=== PATIENT | male | born 1955 | race Caucasian/White ===

== ENCOUNTER → 2018-01-04 02:56 | Outpatient (CLI) | payer OTHER, SELFPAY ==
[2018-01-04 08:11] LABS: Anion Gap 10.7 mmol/L (3-11); BUN 12 mg/dL (7-18); CO2 25.3 mmol/L (21.0-32.0); CREATININE 0.75 mg/dL (0.70-1.30); Calcium 8.8 mg/dL (8.5-10.1); Chloride 104 mmol/L (98-107); Cholesterol 190 mg/dL (50-200); Glucose 93 mg/dL (70-100); HDL Cholesterol 47 mg/dL (40-60); LDL CHOLESTEROL 121 mg/dL (<100); Potassium 4.4 mmol/L (3.5-5.1); Sodium 140 mmol/L (136-145); Triglyceride 165 mg/dL (30-150)
== END ==
PROVIDERS: PCP Family Medicine; Visit Provider Family Medicine
DX: Z00.00 Encounter for general adult medical examination without abnormal findings (principal); Z13.220 Encounter for screening for lipoid disorders; Z13.228 Encounter for screening for other metabolic disorders
CPT/HCPCS: 36415; 80048; 80061; 83721

== ENCOUNTER 2019-01-26 00:58 | Outpatient (CLI) | payer OTHER, SELFPAY ==
--- NOTE | 2019-01-26 08:17 | DI.RAD_ITS ---
SYMPTOM/DIAGNOSIS: RIGHT ELBOW PAIN M25.521 RIGHT ELBOW: 01/26 Three views were obtained. There is no evidence of an elbow joint effusion or hemarthrosis. There is a prominent osteophyte of the olecranon. No other significant bony abnormality seen. I would note that the cortex of the olecranon osteophyte is somewhat irregular and the possibility of an osteophyte fracture is not excluded. Please correlate clinically regarding any acute trauma to this area.
== END 2019-01-26 01:18 ==
PROVIDERS: PCP Family Medicine; Visit Provider Family Medicine
DX: M25.521 Pain in right elbow (principal); M25.721 Osteophyte, right elbow
CPT/HCPCS: 73080

== ENCOUNTER 2019-12-06 12:11 | Outpatient (CLI) | payer OTHER, SELFPAY ==
[2019-12-06 13:32] LABS: Abs Immature Grans 0.06 k/cumm (0.0-0.09); Absolute Basophil Count 0.03 k/cumm (0.0-0.2); Absolute Eosinophil Count 0.37 k/cumm (0.0-0.7); Absolute Lymphocyte Count 2.42 k/cumm (1.2-3.4); Absolute Monocyte Count 0.65 k/cumm (0.11-0.7); Absolute Neutrophil Count 6.57 k/cumm (1.2-6.7); Basophils % 0.3; Eosinophils % 3.7; HGB 14.8 g/dL (13.5-17.5); Immature Grans % 0.6 %; Mean Corp. HGB Concentration 33.6 g/dL (32.0-36.0); Mean Corpuscular Hemoglobin 33.5 pg (27.0-33.0); Mean Corpuscular Volume 99.5 fL (80-95); Mean Platelet Volume 9.8 fL (8.0-11.0); Monocytes % 6.4; Platelet Count 256 x1000/uL (130-400); RBC 4.42 m/cumm (4.50-6.00); RBC Distribution Width 12.3 % (11.8-14.1)
[2019-12-06 14:40] LABS: Anion Gap 9.9 mmol/L (3-11); BUN 17 mg/dL (7-18); CO2 26.1 mmol/L (21.0-32.0); Calcium 8.9 mg/dL (8.5-10.1); Chloride 106 mmol/L (98-107); Glucose 151 mg/dL (74-106); Potassium 3.6 mmol/L (3.5-5.1); Sodium 142 mmol/L (136-145)
== END 2019-12-06 12:31 ==
PROVIDERS: Nurse Practitioner Family; PCP Family Medicine; Visit Provider Family Medicine
DX: Z01.818 Encounter for other preprocedural examination (principal)
CPT/HCPCS: 36415; 80048; 85025

== ENCOUNTER 2020-02-27 08:37 | Outpatient (CLI) | payer OTHER, SELFPAY ==
[2020-02-29 17:44] LABS: Patient Race White; SARS-CoV-2 RNA Undetected (Undetected); SARS-CoV-2 Specimen Source Nasopharynx
== END 2020-02-27 08:57 ==
PROVIDERS: PCP Nurse Practitioner; Visit Provider Nurse Practitioner
DX: R50.9 Fever, unspecified (principal)
CPT/HCPCS: U0003

== ENCOUNTER 2020-03-29 01:02 | Outpatient (CLI) | payer OTHER, SELFPAY ==
[2020-04-02 14:00] LABS: Patient Race White; SARS-CoV-2 RNA Undetected (Undetected); SARS-CoV-2 Specimen Source Nasal
== END 2020-03-29 01:22 ==
PROVIDERS: PCP Nurse Practitioner; Visit Provider Nurse Practitioner
DX: Z11.59 Encounter for screening for other viral diseases (principal)
CPT/HCPCS: U0003

== ENCOUNTER 2020-09-06 01:37 | Outpatient (CLI) | payer OTHER, SELFPAY ==
[2020-09-06 10:12] LABS: Source Nasal/Nares
[2020-09-06 13:30] LABS: COVID-19 PCR Negative (Negative)
== END 2020-09-06 01:38 | disposition home or self-care (01) ==
LOC: LBO 01:37
PROVIDERS: PCP Nurse Practitioner; Visit Provider Surgery
DX: Z20.822 Contact with and (suspected) exposure to COVID-19 (principal); Z01.818 Encounter for other preprocedural examination
CPT/HCPCS: 87635

== ENCOUNTER 2020-09-09 10:12 | Day surgery (SDC) | payer OTHER, SELFPAY ==
--- NOTE | 2020-09-09 06:52 | W.COLOREPORT ---
Date of service: 09/09/20 Time of Service: 10:53 Colonoscopy Report Date of procedure: 09/09/20 Pre-op diagnosis general: Hx of colon polyps Post-op diagnosis procedure note: same (and mild diverticulosis) Procedure: Colonoscopy with polypectomy Surgeon: Kaylin Nguyễn Anesthesia Type: General:No Airway (ASA 2/ Abhi Gatica CRNA) Estimated blood loss (mL): 3 Pathology: other (ceecal polyp, ascending polyp and descending polyp) Complications: None Disposition: same day Indications: The patient is here for Colonoscopy pre-op. His last screening was in 2017 and was remarkable for tubular adenoma and tubulovillious polyps. He has no family history of colon cancer. He has not had any bowel habit changes. -Discussed colonoscopy bowel prep as well as the procedure. Discussed possible complications of the procedure to include bleeding, pain, perforation, missed small lesion/polyp, sore throat, aspiration and adverse reaction to the medications. Questions were answered to patient?s satisfaction. No guarantees were implied or given. Prep: Miralax/Dulcolax Procedure Start Time: :53 Procedure End Time: 11:20 Retraction Time: 20 minutes Findings: 3 small polyps mild diverticulosis Procedure Description: After informed consent was obtained the patient was taken to the procedure room and placed in a left decubitous position. Monitors were applied and a time out was done. The patients name, date of , procedure, allergies to medications and metal in their body was reviewed. The patient was then sedated. Once sedated and comfortable a rectal exam was done. External exam was normal. Internal exam revealed a normal sphincter tone and no palpable masses. The prostate felt smooth. The scope was then introduced and retro-flexed. No internal hemorrhoids, polyps or masses were identified on retro-flexion. The scope was then advanced to the cecum without difficulty. The ileocecal vlave and appendiceal orifice were identified. The prep was adequate. The scope was then slowly retracted over 20 minutes back into the rectum. Polyps were removed with cold forceps in the cecum, ascending and descending colon. There was mild diverticulosis notedon the right side. The scope was removed and the patient was woken up and taken back to Same day surgery in stable condition. The patient tolerated the procedure well and there were no immediate complications. Follow up: The patient should follow up in 5 years unless they develop changes in bowel habits or other new gastrointestinal complaints.
--- NOTE | 2020-09-09 06:53 | W.PM.DSUDISC ---
Discharge Plan Disposition Patient Disposition: HOME Condition: Good Discharge Details Reason For Visit: Colonoscopy Attending Provider: Kaylin Nguyễn Primary Care Provider: Anali Caicedo Home Meds and New Rx's Prescriptions: Continued cinnamon bark 500 MG capsule 500 mg PO DAILY RF: 0 omega-3 fatty acids-fish oil 1 EACH capsule 1 ea PO BID RF: 0 Vitamin D3 (calcium cit-phos) 1 EACH tablet 1 ea PO DAILY RF: 0 aspirin [St Master Aspirin] 81 MG tablet,chewable 81 mg PO DAILY RF: 0 ibuprofen 200 MG tablet 2 tab PO BID prn RF: 0 Discontinued bisacodyl [Dulcolax (bisacodyl)] 5 mg tablet,delayed release (DR/EC) 5 mg PO ONCE Qty: 4 RF: 0 polyethylene glycol 3350 17 gram/dose powder 238 g PO ONCE Qty: 238 RF: 0 Discharge Instructions Instructions: Colorectal Polyps (DC), Diverticulosis (DC) Additional Instructions: Findings: 3 small polyps Diverticulosis Follow up: 5 years Please call if you develop: fevers >101.5 Nausea or Vomiting Abdominal pain that is not transient DAY SURGERY UNIT POST ENDOSCOPY INSTRUCTIONS 1. Because there will be medication in your system for the next 24 hours, you may feel a little sleepy. Your coordination will be affected. Therefore: a. Do not drive or operate dangerous equipment for 24 hours. b. Do not drink alcohol beverages for 24 hours (not even beer). c. Plan to go home and rest for the day. 2. Generally there are no restrictions on your activity after a day or so has gone by, but you may feel a bit fatigued for a few days. 3 After you arrive home you may have a light meal and return to a normal diet as you can tolerate it without feeling sick to your stomach. 4. After surgery, you may feel pain or discomfort. This should be only transient, but if it persists please contact your doctor. 5. If there are any questions regarding the findings of your procedure, please feel free to contact your doctor. 6. If you are unable to contact your doctor with a problem, contact the hospital at [phone]. 7. Continue all your regular medications unless directed otherwise. I understand the above instructions and have no questions. Signature of Patient or Responsible Adult Escort Date/Time Name of Responsible Adult Escort Signature of Nurse Date/Time Activity:: Activity as Tolerated Diet:: High Fiber diet Discharge Orders Discharge Orders: Discharge Order (Routine); Ordered 09/09/20 Ordered By: Kaylin Nguyễn
--- NOTE | 2020-09-09 09:23 | W.ANESPRE ---
Anesthesia Assessment and Plan Anesthesia History Personal History: No History of Anesthesia Complications Family History: No Family History of Anesthesia Complications Exercise Tolerance Exercise Tolerance: Metabolic Equivalents>4 Cardiac & Pulmonary Exam Cardiac Exam: Normal S1/S2 Heart Sounds Pulmonary Exam: Clear Bilateral Breath Sounds Airway Exam Known Difficult Airway: Yes Mallampati Class: 2 Mouth Opening: Normal (> 3cm) Thyromental Distance: Greater than 3 cm Neck Range of Motion: Full ROM Neck Circumference: Normal Teeth Condition: Normal Dentition ASA Classification ASA Score: ASA 2 ASA Emergency: No NPO Status NPO Status: NPO Clears >2 hours, Solids >8 hours Anesthesia Plan Anesthesia Technique: General Anesthesia Airway Planned: Natural Airway Monitors Used: Standard Monitors Additional Preop Comments:: previous colo 2017 with prop/lido without issue. Had tubular adenoma and tubovillious polyps. Imaging and Studies Imaging and Studies EKG Summary 12/03: sinus miguel a. General Info Date of Service This is a Shared Provider Document. All providers who document on this will be required to sign document once completed. Please Communicate with Team Date Performed: 09/09/20 Height: 6 ft 2 in Weight: 98.997 kg Body Mass Index (BMI): 28.0 Surgical Procedure: Operation Date: 09/09/20 11:35 Proposed Procedures Side Surgeon p Colonoscopy Kaylin Nguyễn MD Vital Signs and Lab Results Vital Signs Most Recent Vital Signs in EMR: vital signs reviewed. Point of Care Results Nursing Point of Care Results: No Data to Display Lab Results Blood Type / Crossmatch: No Data to Display Complete Blood Count: White Blood Count 10.10 k/cumm (4.4-10.8) 12/06/19 13:25 12/06/19 Red Blood Count 4.42 m/cumm (4.50-6.00) L 12/06/19 13:25 12/06/19 Hemoglobin 14.8 g/dL (13.5-17.5) 12/06/19 13:12/06/19 Hematocrit 44.0 % (40.0-50.0) 12/06/19 13:25 12/06/19 Platelet Count 256 x1000/uL (130-400) 12/06/19 13:25 12/06/19 Complete Metabolic Panel: Sodium Level 142 mmol/L (136-145) 12/06/19 13:25 12/06/19 Potassium Level 3.6 mmol/L (3.5-5.1) 12/06/19 13:25 12/06/19 Chloride Level 106 mmol/L (98-107) 12/06/19 13:25 12/06/19 Carbon Dioxide Level 26.1 mmol/L (21.0-32.0) 12/06/19 13:25 12/06/19 Blood Urea Nitrogen 17 mg/dL (7-18) 12/06/19 13:25 12/06/19 Creatinine 0.80 mg/dL (0.70-1.30) 12/06/19 13:25 12/06/19 Calcium Level 8.9 mg/dL (8.5-10.1) 12/06/19 13:25 12/06/19 Albumin 3.8 g/dL (3.4-5.0) 07/24/11 07:51 07/24/11 Glucose Level 151 mg/dL (74-106) H 12/06/19 13:25 12/06/19 Liver Function Panel: Alanine Aminotransferase (ALT/SGPT) 30 U/L (30-65) 07/24/11 07:51 07/24/11 Aspartate Amino Transf (AST/SGOT) 21 U/L (15-37) 07/24/11 07:51 07/24/11 Coagulation Panel: No Data to Display Cardiac Panel: No Data to Display Arterial Blood Gas: No Data to Display Venous Blood Gas: No Data to Display Pancreas Panel: No Data to Display Thyroid Panel: No Data to Display Infectious Disease: Coronavirus (COVID-19)(PCR) Negative (Negative) 09/06/20 08:48 09/06/20 Coronavirus 2019 Source Nasal/nares 09/06/20 08:48 09/06/20 Blood Cultures: Blood Culture Toxicology Panel: Urine Amphetamines Screen Negative (Negative) 04/06/15 23:35 04/06/15 Urine Benzodiazepines Screen Negative (Negative) 04/06/15 23:35 04/06/15 Urine Barbiturates Screen Negative (Negative) 04/06/15 23:35 04/06/15 Urine Cocaine Screen Negative (Negative) 04/06/15 23:35 04/06/15 Urine Methadone Screen Negative (Negative) 04/06/15 23:35 04/06/15 Urine Opiates Screen Negative (Negative) 04/06/15 23:35 04/06/15 Ur Tricyclic Antidepressants Screen Negative (Negative) 04/06/15 23:35 04/06/15 Ur Tetrahydrocannabinol (THC) Scrn Negative (Negative) 04/06/15 23:35 04/06/15 Panel: No Data to Display [facility] Medical History Former smoker Hyperlipidemia Trigeminal neuralgia of right side of face Surgical History ANKLE SURGERY LEFT Colonoscopy - MAC (02/08/17) (2007, NORMAL) H/O right cataract extraction (~05/2020) [facility] Social History (Updated 08/29/20 @ 10:16 by [place] Gay) Smoking/Tobacco Use Status: Former Tobacco Use Quit Date: 11/15/19 Smokeless tobacco user: dissolvable tobacco Quit status: not considering quitting Second Hand Exposure: No Smoking risk assessment performed?: Yes Alcohol Intake: current Alcohol Intake frequency: 0-2 drinks per day Alcohol type: beer and hard liquor Drug use: Never Substance use type: does not use Caregiver/Support person: No Household members: spouse Housing: house Communication Needs: None Pets and animals: Yes (Goats, Geese, Johnston) Pets and animals: cat(s) and dog(s) Sexually active: Yes Do you think of yourself as: straight/heterosexual Current gender identity: male What is your relationship status?: How often do you talk on the phone with friends or family?: three or more times per week How often do you get together with friends or relatives?: three or more times per week How often do you attend zoroastrianism or rastafari services?: 1-3 times per year Do you belong to any clubs or organized social groups?: yes Panel score (0-1 are the most socially isolated patients): 3 What type of physical activity do you participate in: walking and other Details: hockey, hiking Duration: > 90 minutes/day Frequency: daily Aura/Confucianist: Restorationism Special aura needs: No Seatbelt use: always Helmet use: Yes Helmet use: always Drive intox or ride w/intox shuttle truck driver: No Do you feel safe at home: Yes Do you feel safe in your relationship?: Yes Meds Allergies and Home Medications Allergies Allergy/AdvReac Type Severity Reaction Status Date / Time cashew nut AdvReac Intermediate Skin Rash Unverified 09/06/20 08:54 Current Visit Medication Generic Name Dose Route Start Last Admin Trade Name Segun PRN Reason Stop Dose Admin Hyoscyamine Sulfate 0.125 mg 09/09/20 06:54 Hyoscyamine 0.125 Mg Sl/Oral/Chew SL DIRECTED PRN Ringer's Solution 1,000 mls @ 80 mls/hr 09/09/20 06:00 09/09/20 10:42 IV 09/09/20 23:59 80 mls/hr INFUSION AMAURI Administration IV Miscellaneous Supplies 1 each 09/09/20 06:00 Iv Access IV 09/09/20 23:59 DIRECTED AMAURI Ondansetron HCl 4 mg 09/09/20 06:54 Ondansetron 4 Mg/2 Ml Vial IVP Q4H PRN PRN Nausea / Vomiting Sodium Chloride 0 ml 09/09/20 06:00 Normal Saline Flush 10 Ml Syr IV 09/09/20 23:59 PRN PRN Sodium Chloride 0 ml 09/09/20 06:00 Normal Saline 10 Ml Vial IJ 09/09/20 23:59 DIRECTED PRN Sterile Water 0 ml 09/09/20 06:00 Water,Injection,Sterile 10 Ml Vial IJ 09/09/20 23:59 DIRECTED PRN Home Medication Medication Instructions Recorded cinnamon bark 500 mg PO DAILY 05/24/13 omega-3 fatty acids-fish oil 1 ea PO BID 05/24/13 Vitamin D3 (calcium cit-phos) 1 ea PO DAILY tab 05/25/13 aspirin [St Master Aspirin] 81 mg PO DAILY tab.chew 05/29/14 ibuprofen 2 tab PO BID prn 06/18/15
[2020-09-09 10:18] VITALS: BP 143/83; PULSE 75; RESP 16; TEMP 36.4; O2SAT 98
[2020-09-09] MEDS: Lactated Ringers 1,000 ML 80 ML IV (10:42)
[2020-09-09 10:43] VITALS: BMI 28.0
--- NOTE | 2020-09-09 11:00 | BOWEL_PTH ---
PATIENT: Andrea Alva LOC: ART U#:[id number] AGE/SX: 65/M ROOM: RE09/09/[address]: Kaylin Nguyễn MD : 1955 BED: DIS: 09/09/2020 SPEC #: [id number] RECD: 09/09/20 12:45 STATUS: KATHIA REJoesph #: [id number] DWAIN: 09/09/20 11:[address]: Kaylin Nguyễn DEPT: Surgical Specimen RECD BY: Mary Ann Stokes ENTERED: 09/09/20 12:46 SP TYPE: Bowel OTHR DR: Anali Caicedo, PhD NURSING ADMINISTRATOR Tissues: 1 - BIOPSY BOWEL 2 - BIOPSY BOWEL 3 - BIOPSY BOWEL Procedures: GROSS AND MICRO LEVEL 4 Comments: [id number]
[2020-09-09 11:31] VITALS: BP 110/71; PULSE 61; RESP 16; TEMP 36.3; O2SAT 96
--- NOTE | 2020-09-09 11:31 | W.ANESPOSTOP ---
Postoperative Evaluation Date, Time and Location Date Performed: 09/09/20 Time Performed: 11:32 Patient Location: Day Surgery Unit Vital Signs Most Recent Imported Vital Signs: Most Recent Vital Signs Temp Pulse Resp BP Pulse Ox 36.4 C L 75 16 143/83 H 98 09/09/20 10:18 09/09/20 10:18 09/09/20 10:18 09/09/20 10:18 09/09/20 10:18 Most Recent Manually Entered Vital Signs: Adult Blood Pressure: 110/71 Heart Rate: 61 Respirations: 15 Oxygen Saturation (%): 97 Temperature (C): 36.2 C Pain Score (0-10 Scale): 0 Assessment Mental Status: Arousable with meaningful communication Airway and Respiratory Function: Patent airway with normal (patient baseline) respiratory exam Cardiovascular Function: Hemodynamically Stable Hydration Status: Adequately Hydrated Nausea & Vomiting: No Nausea or Vomiting Pain: Pt. Denies Any Pain Peripheral Nerve Block: Patient did not receive a nerve block
[2020-09-09 11:32] VITALS: BP 110/71; PULSE 61; RESP 15; TEMPC 36.2; O2SAT 97
[2020-09-09 11:54] VITALS: BP 132/87; PULSE 57; RESP 16; TEMP 36.2; O2SAT 98
== END 2020-09-09 12:10 | disposition home or self-care (01) ==
LOC: SUR 10:12
PROVIDERS: PCP Nurse Practitioner; Visit Provider Surgery
PROC: 0DJD8ZZ Inspection of Lower Intestinal Tract, Via Natural or Artificial Opening Endoscopic (ICD-10-PCS; CPT 45378; principal; 2020-09-09 11:30)
DX: Z12.11 Encounter for screening for malignant neoplasm of colon (principal); Z86.010 Personal history of colon polyps; K57.30 Diverticulosis of large intestine without perforation or abscess without bleeding; D12.0 Benign neoplasm of cecum; D12.4 Benign neoplasm of descending colon
CPT/HCPCS: 45380; 88305; J2001

== ENCOUNTER 2020-11-27 03:21 | Outpatient (CLI) | payer OTHER, SELFPAY ==
[2020-11-27 12:48] LABS: Hemoglobin A1C 5.6 % (<5.7)
[2020-11-27 20:13] LABS: Calculated LDL 127 mg/dL (<100); Cholesterol 204 mg/dL (<200); HDL Cholesterol 48 mg/dL (40-60); Triglyceride 149 mg/dL (<150)
== END 2020-11-27 03:22 | disposition home or self-care (01) ==
LOC: LOS 03:21
PROVIDERS: PCP Nurse Practitioner; Visit Provider Nurse Practitioner
DX: Z13.1 Encounter for screening for diabetes mellitus (principal); Z13.6 Encounter for screening for cardiovascular disorders
CPT/HCPCS: 36415; 80061; 83036

== ENCOUNTER 2022-01-21 14:34 | Outpatient (REF) | payer OTHER, SELFPAY | END 2022-01-21 14:35 | disposition home or self-care (01) | LOC: LBN 14:34 | PROVIDERS: PCP Nurse Practitioner; Visit Provider Nurse Practitioner Family | DX: R31.9 Hematuria, unspecified (principal) | CPT/HCPCS: 87077; 87086 ==

== ENCOUNTER 2022-01-23 01:16 | Outpatient (CLI) | payer OTHER, SELFPAY ==
--- OUTSIDE RECORDS SUMMARY | 2022-01-23 01:19 | XMS_ITS | Encounter Summary ---
:1955 [place] [address] Care Team Providers Name Role Phone Elkin Livingston MD Primary Care Provider Reason for Visit Reason Comments Post Op Encounter Details Date Type Department Care Team Description 05/23/2020 Office Visit Ophthalmology at [facility] Ezequiel Esparza, S/P cataract [facility] [place] [address] [place] [address] intraocular lens, OPHTHALMOLOGY right DEPT. [place], [place] [address] Social History Tobacco Use Types Packs/Day Years Used Date Former Smoker Cigarettes 0.25 Quit: 12/04/19 20 Smokeless Tobacco: Never Used Alcohol Use Standard Drinks/Week Comments Yes 21 (1 standard drink = 0.6 oz pure alcoh ol) Sex Assigned at Date Recorded Male 09/14/2020 5:13 PM EDT documented as of this encounter Progress Notes Ezequiel Esparza MD - 05/23/2020 11:15 AM EST Assessment/Plan: 1. 1 week s/p CE/IOL OD Doing well with normal postop appearance Stop Vigamox drops Continue prednisolone and ketorolac drops 3x/day until gone 2. S/p VTX/SB for mac-off RD repair OD Llimits acuity Follow up: 1 month documented in this encounter Plan of Treatment Not on filedocumented as of this encounter Visit Diagnoses Diagnosis S/P cataract extraction and insertion of intraocular lens, right documented in this encounter Care Teams Television Equipment Operator Relationship Specialty Start Date End Date Elkin Livingston MD PCP - General Family Medicine 12/05/[address] [facility] [address] [place] [address] documented as of this encounter
--- OUTSIDE RECORDS SUMMARY | 2022-01-23 01:19 | XMS_ITS | Clinical Summary ---
:1955 Author Organization [facility] [place] [address] Care Team Providers Name Role Phone Elkin Livingston MD Primary Care Provider Allergies Active Allergy Reactions Severity Noted Date Comments Cashew Nut 12/04/2019 Medications Medication Sig Dispensed Refills Start Date End Date Status niacin 50 mg Tablet Take 50 mg by 0 Active mouth daily (with breakfast). glucosamine sulfate 500 Take by mouth. 0 Active mg Tablet cinnamon bark (CINNAMON Take by mouth. 0 Active ORAL) Multivits/Iron Take by mouth. 0 Active Fum/FA/D3/Lycop (MULTI FOR HIM ORAL) aspirin EC 81 mg Take 81 mg by 0 Active Tablet, Delayed Release mouth as needed. (E.C.) Soft Lens Rinse-Store 1 drop by 0 Active Solution (Saline Misc.(Non-Drug; Sensitive Eyes) Drops Combo Route) route as needed. fish oil-omega-3 fatty Take 2 g by mouth 0 Active acids 1,000 mg Capsule daily. Active Problems Problem Noted Date Combined forms of age-related cataract of right eye Overview: Added automatically from request for romero ryan [id number] Encounters Date Type Specialty Care Team Description 01/02/2022 Office Visit Ophthalmology Nick Paiz MD Macula- off rhegmatogenous retinal detachment, right (SB, PPV, C3F8 12/07/19); Epiretinal memb patsy (ERM) of right eye from Last 3 Months Immunizations Name Administration Dates Next Due Pneumococcal Polyvalent 23 03/15/2003 Td, adult 05/17/1996 Family History Medical History Relation Comments Cataracts Neg Hx Glaucoma Neg Hx Macular Degeneration Neg Hx Retinal Detachment Neg Hx Social History Tobacco Use Types Packs/Day Years Used Date Former Smoker Cigarettes 0.25 Quit: 12/04/19 20 Smokeless Tobacco: Never Used Alcohol Use Standard Drinks/Week Comments Yes 21 (1 standard drink = 0.6 oz pure alcoh ol) Sex Assigned at Date Recorded Male 09/14/2020 5:13 PM EDT Last Filed Vital Signs Vital Sign Reading Time Taken Comments Blood Pressure 124/90 05/14/2020 9:42 AM EST Pulse 67 05/14/2020 9:42 AM EST Temperature 36.4 ??C (97.5 ??F) 05/14/2020 9:42 AM EST Respiratory Rate 16 05/14/2020 9:42 AM EST Oxygen Saturation 97% 05/14/2020 9:42 AM EST Inhaled Oxygen Concentration - - Weight 96.2 kg (212 lb) 05/14/2020 7:52 AM EST Height 188 cm (6' 2) 05/14/2020 7:52 AM EST Body Mass Index 27.22 05/14/2020 7:52 AM EST Plan of Treatment Health Maintenance Due Date Last Done Comments Covid-19 Vaccine (#1) 01/24/1961 HIV screen 01/24/1974 Hepatitis C Screening 01/24/1974 Lipid Screening 01/24/1974 Tdap adult 01/24/1975 Diabetes Screening (HgbA1C or Glucose) 1996 Colonoscopy 01/24/2001 Zoster vaccine (1 of 2) 01/24/2006 Tetanus vaccine 05/17/2006 05/17/1996 Advance Directive 01/24/2011 AAA Screen 01/24/2021 Pneumoccocal Vaccine: 65+ (1 - PCV) 01/24/2021 03/15/2003 Influenza (Flu) vaccine (1 of 1 - Influenza standard 01/15/2022 series) Medical Devices Implanted Type Area Sausage Machine Operator Device Shelf Model / Identifier Expiration Serial / Date Lot Strip,Jeri,5mm ([id number]) - [id number] IMPLANTS Right: MALAGASY OPTH VLAD 05/16/2024 [id number] / Implanted: Qty: 1 on 12/07/2019 by Nick Paiz MD at [facility] Eye [facility] - MALAGASY OPTH / [id number] Lens Iol [id number] +17.5d 6.0x13.0 Monofoca l Post Biconvex ([id number]) (Autoreq) - [id number] IMPLANTS Right: NOVARTIS - 10/24/2024 [id number] 17.5 / Implanted: Qty: 1 on 05/14/2020 by Ezequiel Esparza MD at [facility] Eye NOVARTIS [id number] / Procedures Procedure Name Priority Date/Time Associated Diagnosis Comme nts OCT RETINA - OU - Routine 01/02/2022 4:10 PM Macula-off Resu lts for this BOTH EYES EDT rhegmatogenous retinal proce dure are in detachment, right (SB, the r esults PPV, C3F8 0) section. Epiretinal membrane (ERM) of right eye from Last 3 Months Results OCT Retina - OU - Both Eyes (01/02/2022 4:10 PM EDT) Anatomical Region Laterality Modality Other Specimen (Source) Anatomical Location Collection Method / Collectio n Time Received Time / Laterality Volume Narrative 01/02/2022 4:10 PM EDT Right Eye Quality was good. Scan locations include d subfoveal. Progression has been stable. Findings include macular pucker, abnormal foveal contour. Left Eye Quality was good. Scan locations include d subfoveal. Progression has been stable. Findings include normal observat ions, normal foveal contour. Nick Paiz MD OPHTHALMOLOGY SERVICES ORDER THANH from Last 3 Months Insurance Payer Benefit Plan / Subscriber ID Effective Dates Phone Addre ss Type Group MVP P [place] [id number] 2019-Present [phone] [phone] [place] [address] Advance Directives Documents on File Type Date Recorded Patient Skirt Maker Explanati on Personal Skirt Maker 01/03/2020 2:42 PM Paxton Escobedo Latest Code Status on File Code Status Date Activated Date Inactivated Comments Full Code 12/07/2019 12:20 PM 12/07/2019 6:50 PM Does patient have capacity to make decision: Yes Care Teams Phlebotomy Program Coordinator Relationship Specialty Start Date End Date Elkin Livingston MD PCP - General Family Medicine 12/05/[address] [place] [address] [place] [address]
--- OUTSIDE RECORDS SUMMARY | 2022-01-23 01:19 | XMS_ITS | Encounter Summary ---
:1955 [place] [address] Care Team Providers Name Role Phone Elkin Livingston MD Primary Care Provider Reason for Visit Reason Comments Post Op Encounter Details Date Type Department Care Team Description 06/24/2020 Office Visit Ophthalmology at [facility] Ezequiel Esparza, S/P cataract [facility] MD [place] [address] [place] [address] intraocular lens, OPHTHALMOLOGY right DEPT. [place], [place] [address] Social History Tobacco Use Types Packs/Day Years Used Date Former Smoker Cigarettes 0.25 Quit: 12/04/19 20 Smokeless Tobacco: Never Used Alcohol Use Standard Drinks/Week Comments Yes 21 (1 standard drink = 0.6 oz pure alcoh ol) Sex Assigned at Date Recorded Male 09/14/2020 5:13 PM EDT documented as of this encounter Progress Notes Ezequiel Esparza MD - 06/24/2020 10:45 AM EST Assessment/Plan: 1. 1 month s/p CE/IOL OD Doing well with normal post-op appearance, off drops 2.??S/p VTX/SB for mac-off RD repair OD ?Llimits acuity Glasses Rx written. Follow up: With Dr. Paiz in August With Dr. Negrete in 4 months for continuing optometric care. Patient to call for appointment documented in this encounter Plan of Treatment Not on filedocumented as of this encounter Visit Diagnoses Diagnosis S/P cataract extraction and insertion of intraocular lens, right documented in this encounter Care Teams Patient Account Representative Relationship Specialty Start Date End Date Elkin Livingston MD PCP - General Family Medicine 12/05/[address] [place] [address] [place] [address] documented as of this encounter
--- OUTSIDE RECORDS SUMMARY | 2022-01-23 01:19 | XMS_ITS | Encounter Summary ---
:1955 Author Organization [facility] [place] [address] Care Team Providers Name Role Phone Elkin Livingston MD Primary Care Provider Reason for Visit Auth/Cert Specialty Diagnoses / Procedures Referred By Contact Refer red To Contact Diagnoses Cataract Procedures PRO EXTRACAPSULAR CATARACT RMVL INSERTION IO LENS PROSTH W/O ECP CATARACT EXTRACTION, EXTRACAPSULAR, W/ LENS INSERTION (WRVU 8.52) Referral ID Status Reason Start Date Expiration Date Visits Requ ested Visits Authorized [id number] 1 1 Encounter Details Date Type Department Care Team Description 05/14/2020 Hospital Encounter Outpatient Surgery Ezequiel Esparza ombined forms of age-related cataract of right eye; [place] Karmen Andersen MD Combined forms of age-related cataract o f right eye [facility] [place] [id number] [phone] Social History Tobacco Use Types Packs/Day Years Used Date Former Smoker Cigarettes 0.25 Quit: 12/04/19 20 Smokeless Tobacco: Never Used Alcohol Use Standard Drinks/Week Comments Yes 21 (1 standard drink = 0.6 oz pure alcoh ol) Sex Assigned at Date Recorded Male 09/14/2020 5:13 PM EDT documented as of this encounter Last Filed Vital Signs Vital Sign Reading [...] Mass Index 27.22 05/14/2020 7:52 AM EST documented in this encounter Discharge Instructions Discharge InstructionsMarcela Ramachandran RN - 05/14/2020 7:59 AM EST Home Care Instructions after Cataract Surgery Do not remove the eye patch or shield, unless instructed to do so. Take it easy today. Avoid strenuous activities. Bring your eye drops and the Eye Care Kit with you to each visit after your surgery. Resume all your regular medicines. It is normal to have a scratchy sensation or mild pain in your eye. If you develop vomiting or severe pain not relieved with medication please call. Your appointment with Dr. Esparza is in the Eye Clinic tomorrow. Please check in at 4-B and wait for your name to be called. You may have received medication before and/or during your procedure, which affect your judgement and reaction time. Therefore, for the next 24 hours: You may be unsteady on your feet: be careful on stairs. Do not smoke if you are alone. Do not drink alcoholic beverages. Do not drive or operate any type of machinery. Do not make important legal decisions. If you are having any problems or additional concerns or questions please call: [phone] 8am to 5pm. After 5pm, please call [phone] and ask for ophthalmology MD network control supervisor. documented in this encounter Medications at Time of Discharge Medication Sig Dispensed Refills Start Date End Date Soft Lens Rinse-Store 1 drop by 0 Solution (Saline Sensitive Misc.(Non-Drug; Eyes) Drops Combo Route) route as needed. fish oil-omega-3 fatty Take 2 g by mouth 0 acids 1,000 mg Capsule daily. niacin 50 mg Tablet Take 50 mg by mouth 0 daily (with breakfast). glucosamine sulfate 500 mg Take by mouth. 0 Tablet cinnamon bark (CINNAMON Take by mouth. 0 ORAL) Multivits/Iron Take by mouth. 0 Fum/FA/D3/Lycop (MULTI FOR HIM ORAL) aspirin EC 81 mg Tablet, Take 81 mg by mouth 0 Delayed Release (E.C.) as needed. documented as of this encounter Progress Notes Yoli Clayton RN - 05/14/2020 9:53 AM EST Patient ambulated to car for discharge accompanied by [facility] staff member. Yoli Lipscomb RN - 05/14/2020 9:49 AM EST Discharge instructions and medications reviewed with patient and with his . All questions answered and written copy given to his . Yoli Lipscomb RN - 05/14/2020 9:44 AM EST Date/Procedure: Meds Given Comments 05/14 Versed 2mg Tolerated well Fentanyl 50mcg Tolerated well Yoli Lipscomb RN - 05/14/2020 9:04 AM EST Pt instructed to squeeze RN's hand if having pain, need to cough, etc. Pt instructed not to talk during procedure. Pain assessment unable to verbalize (non-verbal) but will indicate pain with hand squeeze, ask surgeon to pause and verbally assess pt. Marcela Hill RN - 05/14/2020 8:07 AM EST Discharge instructions and medications reviewed with patient and , Doris. All questions answered and written copy sent home with patient. Pt instructed to squeeze RN's hand if having pain, need to cough, etc. Pt instructed not to talk during procedure. Pain assessment unable to verbalize (non-verbal) but will indicate pain with hand squeeze, ask surgeon to pause and verbally assess pt. Harjinder Conte RN - 05/13/2020 2:35 PM EST During this call the patient was questioned regarding travel outside of [place] states, fever, cough, SOB or other illness in the last 14 days. Patient also questioned regarding any exposure to a COVID positive person, a person awaiting results from testing or a person in quarantine.Patient also denies attending a gathering of 50 people indoors or 100 people outdoors where a mask was unable to beworn.Patient denies any positive responses to the above questions for themselves or their escort forthe day of procedure. Patient informed of procedure to be followed upon arrival to the [facility]. That being, COVID questions will be asked again, temperature will be taken, patient and caregiver/school bus driver/mechanic will be given a mask to wear the entire time they are in the [facility] building. Sabina Paris RN - 05/06/2020 3:02 PM EST During this call the patient was questioned regarding travel outside of [place] states, fever, cough, SOB or other illness in the last 14 days. Patient also questioned regarding any exposure to a COVID positive person, a person awaiting results from testing or a person in quarantine.Patient also denies attending a gathering of 50 people indoors or 100 people outdoors where a mask was unable to beworn.Patient denies any positive responses to the above questions for themselves or their escort forthe day of procedure. Patient informed of procedure to be followed upon arrival to the [facility]. That being, COVID questions will be asked again, temperature will be taken, patient and caregiver/school bus driver/mechanic will be given a mask to wear the entire time they are in the [facility] building. documented in this encounter H&P Notes Ezequiel Esparza MD - 05/14/2020 8:21 AM EST Andrea Alva was examined in the preoperative area. He reports no new symptoms or other change in his health since his preoperative history and physical exam was performed less than 30 days ago. His exam reveals no significant changes. He is breathing comfortably, without cyanosis or use of accessory muscles. Vital signs are within acceptable parameters. The eyes are quiet without discharge or other signs of active infection. Heart: RRR Lungs: CTA Mal: 1 ASA: 2 The sedation plan was reviewed with Andrea Alva and he expressed understanding and agreement. Andrea Alva has cataract OD. Today's surgery is on the R side. Ezequiel Esparza MD - 05/14/2020 8:21 AM EST See H&P from [facility] documented in this encounter Miscellaneous Notes Op Note - Ezequiel Esparza MD - 05/14/2020 9:41 AM EST Pre-op diagnosis: Nuclear sclerotic cataract, right eye Post-op diagnosis: Same Surgeon: Ezequiel Esparza MD Name of procedure: Phacoemulsification of cataract with posterior chamber intraocular lens implant, right eye Anesthesia: Subtenons retrobulbar block, IV sedation Indications: Andrea Alva has a visually significant cataract compromising his vision and interfering with daily activities. Full documentation of the clinical indications for surgery is in the preoperative outpatient evaluation. Description of procedure: The right eye was marked preoperatively. A latex-free procedure was performed. The patient was brought into the operating suite, positioned in the supine position, and the patient's identity was verified by the surgeon and operative team. Monitors were placed by the mainspring torque tester. Topical anaesthetic was placed in the right eye. The patient's right eye was prepped with Betadine, including a drop of Betadine in the cul-de-sac. The eye was draped in the usual fashion for intraocular surgery, isolating the eyelashes from the surgical field. An open wire lid speculum was placed. Theoperating microscope was positioned. A buttonhole incision was made in conjunctiva and tenons capsule in the inferonasal quadrant. Bleeders cauterized. Subtenons retrobulbar anesthesia was administered through a cannula with 2.0cc of 2% lidocaine mixed with 0.75% bupivicaine. Adequate anesthesia was obtained. A superior conjunctival peritomy was made, followed by gentle hemostasis with eraser-tip bipolar cautery. A half-thickness scleral groove incision was made 1mm posterior to the limbus. A limbal stab incision was made at 2:00. The eye was entered at the 95 degree meridian with a 2.4mm keratome. Viscoatand then Provisc was instilled in the AC in an Arshinoff-shell technique. A continuous curvilinear capsulorhexis was made with a cystotome. The lens was loosened with hydrodissection. The nucleus was emulsified with the phacoemulsification handpiece in a [id number]-[id number] fashion. Residual cortical material was removed with the automated irrigation/aspiration unit. The posterior capsule was vacuum-polished. The capsular bag was inflated with viscoelastic. An Yuri Model SN60WF posterior chamber lens with a 6mm acrylic optic was inspected and found to be without defects, placed in the [place] III manager sas cartridge, and injected into the capsular bag without difficulty. The lens was secure and well- centered. Viscoelastic was thoroughly removed with the irrigation/aspiration handpiece. The anterior chamber was filled with BSS to normal intraocular pressure. The wounds were checked for leakage andthere was none. Conjunctiva was closed with 10-0 vicryl. One drop of Vigamox, Cosopt, and Maxitrol ointment were instilled, followed by a patch and shield over the operated eye. The patient was taken to [facility] in stable condition. Lens: Yuri SN60WF +17.5 diopter PCIOL EBL <1cc Specimen Removed: None (cataract emulsified, not saved as specimen) Drains: None Surgical Closure: Primary Complications: None Attestation: I performed this procedure without the involvement of a resident. 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 - Primary Other and combined forms of senile catar act documented in this encounter Admitting Diagnoses Diagnosis Combined forms of age-related cataract o f right eye Other and combined forms of senile catar act documented in this encounter Administered Medications Inactive Administered Medications - up to 3 most recent administrations Medication Order MAR Action Action Date Dose Rate Site ketorolac tromethamine (ACULAR) Given 05/14/2020 8:11 AM EST 1 d rop 0.5 % ophthalmic solution 1 drop 1 drop, Right Eye, ONCE, 1 dose, On Wed05/14/20 at 0815, 1 drop to the operative eye once, start on day of surgery, Day of Surgery (Day of Procedure), Routine lactated ringers infusion New Bag 05/14/2020 8:33 AM EST 1,000 mLs 100 mL/hr 1,000 mL, at 100 mL/hr, Intravenous, CONTINUOUS, Starting on Wed05/14/20 at 0815, Until Wed05/14/20 at 0955, Day of Surgery (Day of Procedure) moxifloxacin (VIGAMOX) 0.5 % ophthalmic Given 05/14/2020 8:25 AM EST 1 drop solution 1 drop 1 drop, Right Eye, EVERY 5 MIN, 3 doses, First dose on Wed05/14/20 at 0815, Last dose on Wed05/14/20 at 0825, 1 drop to the operative eye every 5 minutes times 3. Start on the day of surgery. , Day of Surgery (Day of Procedure), Routine Given 05/14/2020 8:21 AM EST 1 drop Given 05/14/2020 8:12 AM EST 1 drop PHENYLephrine (MYDFRIN) 2.5 % ophthalmic Given 05/14/2020 8:20 A M EST 1 drop solution 1 drop 1 drop, Right Eye, EVERY 5 MIN, 3 doses, First dose on Wed05/14/20 at 0815, Last dose on Wed05/14/20 at 0825, 1 drop to the operative eye every 5 minutes times 3. Start on the day of surgery. Do NOT place dilating drops in post-op kit!, Day of Surgery (Day of Procedure), Routine Given 05/14/2020 8:14 AM EST 1 drop Given 05/14/2020 8:10 AM EST 1 drop prednisoLONE acetate (PRED FORTE) 1 % Given 05/14/2020 8:[address] 1 drop ophthalmic suspension 1 drop 1 drop, Right Eye, ONCE, 1 dose, On Wed05/14/20 at 0815, 1 drop to the operative eye once, start on day of surgery, Day of Surgery (Day of Procedure), Routine tropicamide (MYDRIACYL) 1 % ophthalmic Given 05/14/2020 8:21 AM EST 1 drop solution 1 dose, Starting on Wed05/14/20 at 0749, Until Wed05/14/20 at 0821, Marcela Ramachandran.: cabinet override Given 05/14/2020 8:15 AM EST 1 drop Given 05/14/2020 8:10 AM EST 1 drop documented in this encounter Active and Recently Administered Medications Times are shown in EST. Scheduled Medication Order 05/12/2020 05/13/2020 05/14/2020 cyclopentolate (CYCLODRYL) ophthalmic solution 1 drop 0815 (Due)0820 (Due)0825 (Due) 1 drop, Right Eye, EVERY 5 MIN, 3 doses, First dose on Wed05/14/20 at 0815, Last dose on Wed05/14/20 at 0825, 1 drop to the operative eye every 5 minutes times 3. Start day of surgery. Do NOT place di lating drops in post-op kit!, Day of Surgery (Day of Procedure), Routine ketorolac tromethamine (ACULAR) 0.5 % ophthalmic solution 1 drop (COMPLETED) 0811 (Given - Provider: Yoli Clayton RN) 1 drop, Right Eye, ONCE, 1 dose, Wed at 0815, 1 drop to the operative eye once, start on day of surgery, Day of Surgery (Day of Procedure), Routine moxifloxacin (VIGAMOX) 0.5 % ophthalmic solution 1 drop (COMPLET ED) 0812 (Given - Provider: Yoli Clayton RN)0821 (Given - Provider: Yoli Clayton, ZECHARIAH)0825 (Given - Provider: Yoli Clayton, ZECHARIAH) 1 drop, Right Eye, EVERY 5 MIN, 3 doses, First dose on Wed05/14/20 at 0815, Last dose on Wed05/14/20 at 0825, 1 drop to the operative eye every 5 minutes times 3. Start on the day of surgery. , Day of Surgery (Day of Procedure), Routine PHENYLephrine (MYDFRIN) 2.5 % ophthalmic solution 1 drop (COMPLE CORTES) 0810 (Given - Provider: Yoli Clayton, ZECHARIAH)0814 (Given - Provider: Yoli Clayton, ZECHARIAH)0820 (Given - Provider: Yoli Clayton, ZECHARIAH) 1 drop, Right Eye, EVERY 5 MIN, 3 doses, First dose on Wed05/14/20 at 0815, Last dose on Wed05/14/20 at 0825, 1 drop to the operative eye every 5 minutes times 3. Start on the day of surgery. Do NOT p lace dilating drops in post-op kit!, Day of Surgery (D ay of Procedure), Routine prednisoLONE acetate (PRED FORTE) 1 % ophthalmic suspension 1 drop (COMPLETED) 0811 (Given - Provider: Yoli Clayton, ZECHARIAH ) 1 drop, Right Eye, ONCE, 1 dose, Wed at 0815, 1 drop to the operative eye once, start on day of surgery, Day of Surgery (Day of Procedure), Routine Continuous Medication Order 05/12/2020 05/13/2020 05/14/2020 lactated ringers infusion (CANCELED) 0833 (New Bag - Provider: Yoli Clayton RN) 1,000 mL, at 100 mL/hr, Intravenous, CON TINUOUS, Starting Wed05/14/20 at 0815, Until Wed05/14/20 at 0955, Day of Surgery (Day of Procedure) PRN Medication Order 05/12/2020 05/13/2020 05/14/2020 fentaNYL (pf) (50 mcg/mL) multi-dose injection 25-50 mcg (CANCEL ED) 0916 (Given - Provider: Yoli Clayton, ZECHARIAH)0923 (Given - Provider: Yoli Clayton, ZECHARIAH) 25-50 mcg, Intravenous, EVERY 5 MIN PRN, Starting 05/14/20 at 0747, Until 05/14/20 at 0955, Pain, Hold for respiratory rate less than 8 breaths per minute. (maximum dose 200 mcg), Intra-Operative (Intra-Procedure), Routine midazolam (pf) (Versed) (1 mg/mL) multi-dose injection 0.5-2 mg (CANCELED) 0916 (Given - Provider: Yoli Clayton RN)0923 (Given - Provider: Yoli Clayton RN) 0.5-2 mg, Intravenous, EVERY 5 MIN PRN, Starting 05/14/20 at 0747, Until 05/14/20 at 0955, Sleep, Anxiety, Hold for delirium/agitation. (Maximum dose 5 mg)., Intra-Operative (Intra-Procedure), Routine No Frequency Medication Order 05/12/2020 05/13/2020 05/14/2020 tropicamide (MYDRIACYL) 1 % ophthalmic solution (COMPLETED) 0810 (Given - Provider: Yoli Clayton RN)0815 (Given - Provider: Yoli Clayton RN)0821 (Given - Provider: Yoli Clayton, RN) 1 dose, Starting 05/14/20 at 0749, U ntil e 05/14/20 at 0821, Marcela Ramachandran: cabinet override documented in this encounter Care Teams Second Class Welder Relationship Specialty Start Date End Date Elkin Livingston MD PCP - General Family Medicine 12/05/[address] [place] [address] documented as of this encounter
--- OUTSIDE RECORDS SUMMARY | 2022-01-23 01:19 | XMS_ITS | Encounter Summary ---
:1955 Author Organization [facility] Address [facility] [place] [address] Care Team Providers Name Role Phone Elkin Livingston MD Primary Care Provider Encounter Details Date Type Department Care Team Description 12/08/2019 Office Visit Ophthalmology at [facility] Nick Easton, Macula-off [facility] rhegmatogenous retinal Drive [facility] detachment, right ([place] [address] [place], C3F8 12/07/19) [phone] [place] [address] Social History Tobacco Use Types Packs/Day Years Used Date Current Every Day Smoker Cigarettes 0.25 Smokeless Tobacco: Never Used Alcohol Use Standard Drinks/Week Comments Yes 21 (1 standard drink = 0.6 oz pure alcoh ol) Sex Assigned at Date Recorded Male 09/14/2020 5:13 PM EDT documented as of this encounter Patient Instructions Patient InstructionsNick Paiz MD - 12/08/2019 8:30 AM EDT Images from the original note were not included. Drop Name: Cap Color: Dose: 1 Drop Eye: Cyclopentolate Red 3 x daily right eye Prednisolone Acetate 1% [place] or White 3 x daily (Shake well before using) right eye Vigamox (Moxifloxacin) [place] 3 x daily right eye Ointment Small tube 2-3x daily as needed right eye Position face-down as much as possible until next seen. Try for 45 minutes of every hour for the first 3 days, and then 30 min of every hour thereafter. Sleep on LEFT SIDE or on your stomach with your head face down Do not lay flat on your back ?? Bloody tears are normal for a week or two after surgery ?? CONTINUE ALL PREVIOUSLY PRESCRIBED EYE DROPS UNLESS OTHERWISE DIRECTED ?? Bring drops with you for your follow up visits. ?? Shake drops gently before use. ?? Wash hand before using eye drops. ?? Do not touch dropper to eyelids or fingers. ?? Space drops a minimum or 2-3 minutes apart from each other. ?? Wear solid eye shield while sleeping for 1 week as directed. ?? Shower/bathe as normal, but do not get bath/tap water directly in operative eye. ?? If given a green bracelet, wear until gas bubble is gone. If you have any questions or problems call us, a doctor is on a call 24 hours a day. Should you experience any: Severe Pain, Severe Light Sensitivity, Nausea and/or Vomiting, Sudden Loss of Vision, or any Thick Discharge from your eye PLEASE call the Eye Clinic IMMEDIATELY at [phone]. documented in this encounter Progress Notes Nick Paiz MD - 12/08/2019 8:30 AM EDT ASSESSMENT: 1. Macula-off rhegmatogenous retinal detachment, right (SB, PPV, C3F8 12/07/19) POD 1 Doing well PLAN: Pred Forte and Vigamox and Cyclo TID to operative eye No water in eye for 1 week Position appropriately Follow up 1 week as scheduled Sooner PRN Nick Paiz MD documented in this encounter Plan of Treatment Not on filedocumented as of this encounter Visit Diagnoses Diagnosis Macula-off rhegmatogenous retinal detach ment, right (SB, PPV, C3F8 12/07/19) documented in this encounter Care Teams Seismograph Computer Relationship Specialty Start Date End Date Elkin Livingston MD PCP - General Family Medicine 12/05/[address] [place] [address] documented as of this encounter
--- OUTSIDE RECORDS SUMMARY | 2022-01-23 01:19 | XMS_ITS | Encounter Summary ---
:1955 Author Organization [facility] Address [facility] [place] [address] Care Team Providers Name Role Phone Elkin Livingston MD Primary Care Provider Reason for Visit Reason Comments Post Op Encounter Details Date Type Department Care Team Description 01/31/2020 Office Visit Ophthalmology at [facility] C Nick Paiz, Macula-off [facility] rhegmatogenous retinal Drive [facility] detachment, right (, [place] [address] [place], C3F8 12/07/19) [phone] [place] [address] Social History Tobacco Use Types Packs/Day Years Used Date Former Smoker Cigarettes 0.25 Quit: 12/04/19 20 Smokeless Tobacco: Never Used Alcohol Use Standard Drinks/Week Comments Yes 21 (1 standard drink = 0.6 oz pure alcoh ol) Sex Assigned at Date Recorded Male 09/14/2020 5:13 PM EDT documented as of this encounter Progress Notes Nick Paiz MD - 01/31/2020 9:45 AM EDT ASSESSMENT: 1. Macula-off rhegmatogenous retinal detachment, right (SB, PPV, C3F8 12/07/19) Surgical Findings: Multiple breaks were noted in the superotemporal periphery between 10 and 12 POM2. Doing well. Retina is holding well, attached. PLAN: Refer to any cataract MD within 2 months for cat-eval after RD repair. [facility] [place] Laser to small retinal hole posterior to buckle inferior today Resume all normal activity Sleep in any position. Follow up in Apr 2020 for DFE/OCT. I, Yanira Alvares, have performed the documentation for this encounter in the presence of and acting as a scribe for Nick Paiz MD. I performed the services which were documented by the scribe, and I agree with the accuracy of the documentation in this encounter. Nick Paiz MD documented in this encounter Plan of Treatment Not on filedocumented as of this encounter Visit Diagnoses Diagnosis Macula-off rhegmatogenous retinal detach ment, right (SB, PPV, C3F8 12/07/19) documented in this encounter Care Teams Cad Drafter Relationship Specialty Start Date End Date Elkin Livingston MD PCP - General Family Medicine 12/05/[address] [place] [address] documented as of this encounter
--- OUTSIDE RECORDS SUMMARY | 2022-01-23 01:19 | XMS_ITS | Encounter Summary ---
:1955 Author Organization [facility] [place] [address] Care Team Providers Name Role Phone Elkin Livingston MD Primary Care Provider Reason for Visit Auth/Cert Specialty Diagnoses / Procedures Referred By Contact Refer red To Contact Diagnoses Cataract Procedures PRO EXTRACAPSULAR CATARACT RMVL INSERTION IO LENS PROSTH W/O ECP CATARACT EXTRACTION, EXTRACAPSULAR, W/ LENS INSERTION (WRVU 8.52) Referral ID Status Reason Start Date Expiration Date Visits Requ ested Visits Authorized [id number] 1 1 Encounter Details Date Type Department Care Team Description 05/14/2020 Surgery Outpatient Surgery Bam Esparza MD CATARACT EXTRACTION, [facility] EXTRACAPSULAR, W/ LENS [facility] DR INSERTION (WRVU 8.52) [facility] [place] [address] [place] [address] [phone] Social History Tobacco Use Types Packs/Day Years Used Date Former Smoker Cigarettes 0.25 Quit: 12/04/19 20 Smokeless Tobacco: Never Used Alcohol Use Standard Drinks/Week Comments Yes 21 (1 standard drink = 0.6 oz pure alcoh ol) Sex Assigned at Date Recorded Male 09/14/2020 5:13 PM EDT documented as of this encounter Last Filed Vital Signs Vital Sign Reading Time Taken Comments Blood Pressure 120/83 05/14/2020 9:30 AM EST Pulse 66 05/14/2020 9:30 AM EST Temperature 36.5 ??C (97.7 ??F) 05/14/2020 7:52 AM EST Respiratory Rate 17 05/14/2020 9:30 AM EST Oxygen Saturation 100% 05/14/2020 9:30 AM EST Inhaled Oxygen Concentration - - [...] or additional concerns or questions please call: [phone] 8am to 5pm. After 5pm, please call [phone] and ask for ophthalmology MD youth corrections officer. documented in this encounter Medications at Time [...] patient was questioned regarding travel outside of [place], fever, cough, SOB or other illness [...] again, temperature will be taken, patient and caregiver/trash truck driver will be given a mask to wear the entire time they are in the [facility] building. Sabina Paris RN - 05/06/2020 3:02 PM EST During this call the patient was questioned regarding travel outside of [place], fever, cough, SOB or other illness [...] again, temperature will be taken, patient and caregiver/trash truck driver will be given a mask to wear [...] 05/14/2020 8:21 AM EST See H&P from [facility] documented in this encounter Miscellaneous Notes Op [...] operative team. Monitors were placed by the early childhood worker. Topical anaesthetic was placed in the right [...] emulsified with the phacoemulsification handpiece in a [id number] fashion. Residual cortical material was removed with the automated irrigation/aspiration unit. The posterior capsule was vacuum-polished. The capsular bag was inflated with viscoelastic. An Yuri Model [id number] posterior chamber lens with a 6mm acrylic optic was inspected and found to be without defects, placed in the [place] III warning analyst cartridge, and injected into the capsular bag [...] and combined forms of senile catar act Combined forms of age-related cataract o f [...] MAR Action Action Date Dose Rate Site fentaNYL (pf) (50 mcg/mL) Given 05/14/2020 9:23 AM EST 25 mcg multi-dose injection 25-50 mcg 25-50 mcg, Intravenous, EVERY 5 MIN PRN, Starting on Wed05/14/20 at 0747, Until Wed05/14/20 at 0955, Pain, Hold for respiratory rate less than 8 breaths per minute. (maximum dose 200 mcg), Intra-Operative (Intra-Procedure), Routine Given 05/14/2020 9:16 AM EST 25 mcg ketorolac tromethamine (ACULAR) 0.5 % Given 05/14/2020 8:[address] 1 drop ophthalmic solution 1 drop 1 drop, Right [...] 0955, Day of Surgery (Day of Procedure) midazolam (pf) (Versed) (1 mg/mL) multi-dose Given 05/14/2020 9: 23 AM EST 1 mg injection 0.5-2 mg 0.5-2 mg, Intravenous, EVERY 5 MIN PRN, Starting on 12/29/20 at 0747, Until Wed05/14/20 at 0955, Sleep, Anxiety, Hold for delirium/agitation. (Maximum dose 5 mg)., Intra-Operative (Intra-Procedure), Routine Given 05/14/2020 9:16 AM EST 1 mg moxifloxacin (VIGAMOX) 0.5 % ophthalmic Given 05/14/2020 [...] at 0749, Until Wed05/14/20 at 0821, Marcela Ramachandran: cabinet override Given 05/14/2020 8:15 AM EST [...] (COMPLETED) 0811 (Given - Provider: Yoli Clayton, ZECHARIAH) 1 drop, Right Eye, ONCE, 1 dose, [...] Yoli Clayton, ZECHARIAH)0923 (Given - Provider: Yoli Clayton RN) 25-50 mcg, Intravenous, EVERY 5 MIN PRN, Starting Wed05/14/20 at 0747, Until Wed05/14/20 at 0955, Pain, Hold for respiratory rate less than 8 breaths per minute. (maximum dose 200 mcg), Intra-Operative (Intra-Procedure), Routine midazolam (pf) (Versed) (1 mg/mL) multi-dose injection 0.5-2 mg (CANCELED) 0916 (Given - Provider: Yoli Clayton RN)09 (Given - Provider: Yoli Clayton RN) 0.5-2 mg, Intravenous, EVERY 5 MIN PRN, Starting Wed05/14/20 at 0747, Until Wed05/14/20 at 0955, Sleep, Anxiety, Hold for delirium/agitation. (Maximum dose 5 mg)., Intra-Operative (Intra-Procedure), Routine No Frequency Medication Order 05/12/2020 05/13/2020 05/14/2020 tropicamide (MYDRIACYL) 1 % ophthalmic solution (COMPLETED) 0810 (Given - Provider: Yoli Clayton RN)0815 (Given - Provider: Yoli Clayton RN)08 (Given - Provider: Yoli Clayton RN) 1 dose, Starting 05/14/20 at 0749, U ntil 05/14/20 at 0821, Marcela Ramachandran: cabinet override documented in this encounter Care Teams Emd Special Education Teacher Relationship Specialty Start Date End Date Elkin Livingston MD PCP - General Family Medicine 12/05/[address] [place] [address] documented as of this encounter
--- OUTSIDE RECORDS SUMMARY | 2022-01-23 01:19 | XMS_ITS | Encounter Summary ---
:1955 Author Organization [facility] [place] [address] Care Team Providers Name Role Phone Elkin Livingston MD Primary Care Provider Encounter Details Date Type Department Care Team Description 02/01/2020 Telephone Ophthalmology at [facility] Nick Easton MD [facility] [place] [address] OPHTHALMOLOGY DEPT [phone] [place], [place] [address] (Wo rk) Social History Tobacco Use Types Packs/Day Years Used Date Former Smoker Cigarettes 0.25 Quit: 12/04/19 20 Smokeless Tobacco: Never Used Alcohol Use Standard Drinks/Week Comments Yes 21 (1 standard drink = 0.6 oz pure alcoh ol) Sex Assigned at Date Recorded Male 09/14/2020 5:13 PM EDT documented as of this encounter Miscellaneous Notes Telephone Encounter - Pam Land - 02/06/2020 10:35 AM EDT Scheduled Telephone Encounter - Colleen Snow - 02/05/2020 4:19 PM EDT LM for pt DMM has 1 new pt slot left on 03/04, or can put on 04/12 in the AM of DOC Also scheduled appt with NNB Telephone Encounter - Colleen Snow - 02/01/2020 9:04 AM EDT Seen by NNB on 01/30 Refer to any cataract MD within 2 months for cat-eval after RD repair. [facility]. ?? Follow up with NNB in Apr 2020 for DFE/OCT documented in this encounter Plan of Treatment Not on filedocumented as of this encounter Visit Diagnoses Not on filedocumented in this encounter Care Teams Blending Tank Tender Helper Relationship Specialty Start Date End Date Elkin Livingston MD PCP - General Family Medicine 12/05/[address] [place] [address] documented as of this encounter
--- OUTSIDE RECORDS SUMMARY | 2022-01-23 01:19 | XMS_ITS | Encounter Summary ---
:1955 [place] [address] Care Team Providers Name Role Phone Elkin Livnigston MD Primary Care Provider Reason for Visit Reason Comments Post Op S/P CE IOL OD 05/14/2020 Encounter Details Date Type Department Care Team Description 05/15/2020 Office Visit Ophthalmology at [facility] C Ezequiel Esparza, S/P cataract [facility] [place] [address] [place] [address] intraocular lens, OPHTHALMOLOGY right DEPT. [place], [place] [address] Social History Tobacco Use Types Packs/Day Years Used Date Former Smoker Cigarettes 0.25 Quit: 12/04/19 20 Smokeless Tobacco: Never Used Alcohol Use Standard Drinks/Week Comments Yes 21 (1 standard drink = 0.6 oz pure alcoh ol) Sex Assigned at Date Recorded Male 09/14/2020 5:13 PM EDT documented as of this encounter Progress Notes Ezequiel Esparza MD - 05/15/2020 11:00 AM EST Assessment/Plan: 1. 1 day s/p cataract surgery OD Doing well with a normal post operative appearance. - Prednisolone acetate 1% 3x/d in operative eye - Moxifloxicin 3x/d in operative eye - Ketorolac 3x/d in operative eye - Post op precaution sheet reviewed and given to patient 2. S/p VTX/SB for mac-off RD repair OD May limit acuity Follow up: - 1 week DMM, sooner as needed. - Refract (prelim), dilate prn documented in this encounter Plan of Treatment Not on filedocumented as of this encounter Visit Diagnoses Diagnosis S/P cataract extraction and insertion of intraocular lens, right documented in this encounter Care Teams Compensation Consulting Manager Relationship Specialty Start Date End Date Elkin Livingston MD PCP - General Family Medicine 12/05/[address] [place] [address] documented as of this encounter
--- OUTSIDE RECORDS SUMMARY | 2022-01-23 01:19 | XMS_ITS | Encounter Summary ---
:1955 Author Organization [facility] [place] [address] Care Team Providers Name Role Phone Elkin Livingston MD Primary Care Provider Reason for Visit Reason Comments Detached Retina Epiretinal Membrane Encounter Details Date Type Department Care Team Description 09/20/2020 Office Visit Ophthalmology at [facility] Nick Paiz, Macula-off rhegmatogenous re tinal detachment, right (SB, PPV, C3F8 12/07/19); [facility] Epiretinal membrane (ERM) of right eye; [place] [facility] Macula-off rhegmatogenous re [place]inal detachment, [place] [address] C[address] [phone] [place] [address] Social History Tobacco Use Types Packs/Day Years Used Date Former Smoker Cigarettes 0.25 Quit: 12/04/19 20 Smokeless Tobacco: Never Used Alcohol Use Standard Drinks/Week Comments Yes 21 (1 standard drink = 0.6 oz pure alcoh ol) Sex Assigned at Date Recorded Male 09/14/2020 5:13 PM EDT documented as of this encounter Progress Notes Nick Paiz MD - 09/20/2020 12:30 PM EDT ASSESSMENT: 1. 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 Epiretinal membrane (ERM) of right eye S/p retinal detachment repair OD (SB, PPV, C3F8 12/07/19). S/p CE/IOP Visual Acuity Visual Acuity (Snellen - Linear) Right Left Dist sc 20/60 -2 20/25 Dist ph sc 20/50 -2 Near cc 20/30 20/25-1 OD: attached with moderate macular pucker, PCIOL OS: Normal PLAN: Very stable retina and macular pucker. He's functioning well. No plans for further surgery. Follow up with Dr. Negrete in 6mo Follow up 12 months for DFE, OCT OU I, Alexandra Javier, have performed the documentation for this encounter [...] nts OCT RETINA - OU - Routine 09/20/2020 2:07 PM Macula-off Resu lts for this BOTH EYES EDT rhegmatogenous retinal proce dure are in detachment, righ t the results Epiretinal membrane section. (ERM) of right eye documented in this encounter Results OCT Retina - OU - Both Eyes (09/20/2020 2:07 PM EDT) Anatomical Region Laterality Modality Other Specimen (Source) Anatomical Location Collection Method / Collectio n Time Received Time / Laterality Volume Narrative 09/20/2020 2:07 PM EDT Right Eye Quality was good. Scan locations include d subfoveal. Progression has been stable. Findings include macular pucker, abnormal foveal contour. Left Eye Quality was good. Scan locations include d subfoveal. Progression has been stable. Findings include normal observat ions, normal foveal contour. Nick Paiz MD OPHTHALMOLOGY SERVICES ORDER THANH documented in this encounter Visit Diagnoses Diagnosis Macula-off rhegmatogenous retinal detach ment, right (SB, PPV, C3F8 12/07/19) Epiretinal membrane (ERM) of right eye documented in this encounter Care Teams Apprentice Technician Relationship Specialty Start Date End Date Elkin Livingston MD PCP - General Family Medicine 12/05/[address] [place] [address] documented as of this encounter
--- OUTSIDE RECORDS SUMMARY | 2022-01-23 01:19 | XMS_ITS | Encounter Summary ---
:1955 Author Organization [facility] Address [facility] [place] [address] Care Team Providers Name Role Phone Elkin Livingston MD Primary Care Provider Reason for Visit Reason Onset Date Comments Letter Request From Patient 12/20/2019 Encounter Details Date Type Department Care Team Description 12/20/[address] [facility] Nick Easton, Letter Request From [facility] [place] [address] [facility] [phone] DR OPHTHALMOLOGY DE PT [place], [place] [address] Social History Tobacco Use Types Packs/Day Years Used Date Current Every Day Smoker Cigarettes 0.25 Smokeless Tobacco: Never Used Alcohol Use Standard Drinks/Week Comments Yes 21 (1 standard drink = 0.6 oz pure alcoh ol) Sex Assigned at Date Recorded Male 09/14/2020 5:13 PM EDT documented as of this encounter Miscellaneous Notes Telephone Encounter - Lynn Cedillo - 12/22/2019 2:36 PM EDT Letter mailed Letter in EDH now. Thanks Nick Paiz MD Telephone Encounter - Melvi Méndez - 12/20/2019 8:11 AM EDT Pt would like a return to work note sent to him so he could return to work on mon 12/25/2019 - pt is still not comfortable driving - please send letter to pts address listed in his chart - for any further questions please contact pt at [phone] documented in this encounter Plan of Treatment Not on filedocumented as of this encounter Visit Diagnoses Not on filedocumented in this encounter Care Teams Lead Shipper Relationship Specialty Start Date End Date Elkin Livingston MD PCP - General Family Medicine 12/05/[address] [place] [address] [address] [place] [address] documented as of this encounter
--- OUTSIDE RECORDS SUMMARY | 2022-01-23 01:19 | XMS_ITS | Encounter Summary ---
:1955 Author Organization [place] [address] Care Team Providers Name Role Phone Elkin Livingston MD Primary Care Provider Encounter Details Date Type Department Care Team Description 01/08/2020 Telephone Ophthalmology at [facility] Nick Easton MD [facility] [place] [address] OPHTHALMOLOGY DEPT [phone] [place], [place] [address] (Wo rk) Social History Tobacco Use Types Packs/Day Years Used Date Former Smoker Cigarettes 0.25 Quit: 12/04/19 20 Smokeless Tobacco: Never Used Alcohol Use Standard Drinks/Week Comments Yes 21 (1 standard drink = 0.6 oz pure alcoh ol) Sex Assigned at Date Recorded Male 09/14/2020 5:13 PM EDT documented as of this encounter Miscellaneous Notes Telephone Encounter - Colleen Snow - 01/08/2020 12:43 PM EDT Please print out Certificate of Medical Necessity & mail to pt, as he needs a copy for the insurance company. Andrea Alva [address] [facility] [phone] documented in this encounter Plan of Treatment Not on filedocumented as of this encounter Visit Diagnoses Not on filedocumented in this encounter Care Teams Insurance Sales Assistant Relationship Specialty Start Date End Date Elkin Livingston MD PCP - General Family Medicine 12/05/[address] [place] [address] documented as of this encounter
--- OUTSIDE RECORDS SUMMARY | 2022-01-23 01:19 | XMS_ITS | Encounter Summary ---
:1955 Author Organization [facility] [place] [address] Care Team Providers Name Role Phone Elkin Livingston MD Primary Care Provider Reason for Visit Reason Comments Procedure Encounter Details Date Type Department Care Team Description 01/31/2020 Procedure visit Ophthalmology at [facility] Nick Easton, Retinal hole, right [facility] [place] [address] [place] [address] [place] [address] Social History Tobacco Use Types Packs/Day Years Used Date Former Smoker Cigarettes 0.25 Quit: 12/04/19 20 Smokeless Tobacco: Never Used Alcohol Use Standard Drinks/Week Comments Yes 21 (1 standard drink = 0.6 oz pure alcoh ol) Sex Assigned at Date Recorded Male 09/14/2020 5:13 PM EDT documented as of this encounter Patient Instructions Patient InstructionsLiliya Tapia 01/31/2020 7:30 PM EDT The doctor recommended laser retinopexy. What should I expect? Before the Laser The doctor will use topical anesthetics with drops and/or injections to numb up the eye. During the laser The laser takes 5-15 minutes. The patients frequently feel some discomfort that is generally well tolerated. If you feel that you cannot tolerate it please tell the doctor and the settings will be adjusted. If you still feel pain the treatment can be stopped. A small minority of the patients feel light-headed during the laser. If you feel so please let us know and we will stop it. If you're diabetic please make sure you eat at your usual times prior to the laser. Immediately after the laser The vision is very blurry for a few minutes but goes back to baseline. Some patients feel foreign body sensation and mild pain for ~24 hours and in these cases over the counter artificial tears are recommended. Over over the counter pain medications (e.g. Tylenol or ibuprophen) might also help For several days after the laser The eye might look red and swollen. Use of artificial tears sometimes helps. Activity restrictions: A) If the laser was done for the treatment of a retinal tear/detachment please avoid any high impactactivities such as long distance running, heavy weight lifting (i.e. More than 20lbs), contact sports (e.g. boxing, basketball etc) for 2 weeks. It's ok however to do most of your basic daily activities including sports with low impact (swimming, bike riding, walking on treadmill etc) B) These limitations do not apply to those who had Panretinal photocoagulation laser for diabetic retinopathy. These patients can continue their previous daily activities documented in this encounter Plan of Treatment Not on filedocumented as of this encounter Procedures Procedure Name Priority Date/Time Associated Comments Diagnosis PROPHYLAXIS RETINA Routine 01/31/2020 11:34 Retinal hole, righ t Results for this DETACH, LASER - AM EDT procedure ar e in CLINIC - [facility] documented in this encounter Results Prophylaxis Retina Detach, Laser - Clinic - OD - Right Eye (01/31/2020 11:34 AM EDT) Anatomical Region Laterality Modality Other Specimen (Source) Anatomical Location Collection Method / Collectio n Time Received Time / Laterality Volume Narrative 01/31/2020 11:34 AM EDT Laser Information The duration in seconds was 0.1. Laser p ower was 250. Total spots was 120. The spot size was 200 microns. Notes Laser to round hole posterior to buckle at 6:00 Nick Paiz MD OPHTHALMOLOGY SERVICES ORDER THANH documented in this encounter Visit Diagnoses Diagnosis Retinal hole, right documented in this encounter Care Teams Haunted History Tour Guide Relationship Specialty Start Date End Date Elkin Livingston MD PCP - General Family Medicine 12/05/[address] [place] [address] documented as of this encounter
--- OUTSIDE RECORDS SUMMARY | 2022-01-23 01:19 | XMS_ITS | Encounter Summary ---
:1955 Author Organization [facility] Address [facility] [place] [address] Care Team Providers Name Role Phone Elkin Livingston MD Primary Care Provider Reason for Visit Reason Comments Post Op Encounter Details Date Type Department Care Team Description 12/15/2019 Office Visit Ophthalmology at [facility] C Nick Paiz, Macula-off [facility] rhegmatogenous retinal [address] [facility] detachment, right (, [place] [address] [place], C3F8 12/07/19) [phone] [place] [address] Social History Tobacco Use Types Packs/Day Years Used Date Current Every Day Smoker Cigarettes 0.25 Smokeless Tobacco: Never Used Alcohol Use Standard Drinks/Week Comments Yes 21 (1 standard drink = 0.6 oz pure alcoh ol) Sex Assigned at Date Recorded Male 09/14/2020 5:13 PM EDT documented as of this encounter Patient Instructions Patient InstructionsNick Paiz MD - 12/15/2019 10:00 AM EDT Images from the original note were not included. Drop Name: Cap Color: Dose: 1 Drop Eye: Cyclopentolate Red STOP right eye Prednisolone Acetate 1% [place] or White 2 x daily (Shake well before using) right eye Vigamox (Moxifloxacin) [place] STOP right eye Ointment Small tube 2-3x daily as needed right eye Continue to sleep on LEFT SIDE as much as possible. Ok to be upright during the day. Do not lay flat on your back [...] PLEASE call the Eye Clinic IMMEDIATELY at [phone]. documented in this encounter Progress Notes Nick Paiz MD - 12/15/2019 10:00 AM EDT ASSESSMENT: 1. Macula-off rhegmatogenous retinal detachment, right (SB, PPV, C3F8 12/07/19) Surgical Findings: Multiple breaks were noted in the superotemporal periphery between 10 and 12 POW1 Doing well PLAN: Stop Vigamox and Cyclopentolate Taper PF to BID until gone Follow up in 3-4 weeks HCK OD Nick Paiz MD documented in this encounter Plan of Treatment Not on filedocumented as of this encounter Visit Diagnoses Diagnosis Macula-off rhegmatogenous retinal detach ment, right (SB, PPV, C3F8 12/07/19) documented in this encounter Care Teams Director Service Relationship Specialty Start Date End Date Elkin Livingston MD PCP - General Family Medicine 12/05/[address] [place] [address] documented as of this encounter
--- OUTSIDE RECORDS SUMMARY | 2022-01-23 01:19 | XMS_ITS | Encounter Summary ---
:1955 Author Organization [facility] [place] [address] Care Team Providers Name Role Phone Elkin Livingston MD Primary Care Provider Reason for Visit Reason Comments Post Op Encounter Details Date Type Department Care Team Description 01/05/2020 Office Visit Ophthalmology at [facility] C Nick Paiz, Macula-off [facility] rhegmatogenous retinal Drive [facility] detachment, right (, [place] [address] [place], C3F8 12/07/19) [phone] [place] [address] Social History Tobacco Use Types Packs/Day Years Used Date Former Smoker Cigarettes 0.25 Quit: 12/04/19 20 Smokeless Tobacco: Never Used Alcohol Use Standard Drinks/Week Comments Yes 21 (1 standard drink = 0.6 oz pure alcoh ol) Sex Assigned at Date Recorded Male 09/14/2020 5:13 PM EDT documented as of this encounter Progress Notes Nick Paiz MD - 01/05/2020 8:45 AM EDT ASSESSMENT: 1. Macula-off rhegmatogenous retinal detachment, right (SB, PPV, C3F8 12/07/19) Surgical Findings: Multiple breaks were noted in the superotemporal periphery between 10 and 12 POM1 Doing well PLAN: Stop PF. Use ATs for comfort. Follow up in 2-4 weeks HCK RENATE I, Maria D Vargas, have performed the documentation for this encounter in the presence of and actingas a scribe for Nick Paiz MD. I [...] 12/07/19) documented in this encounter Care Teams Tire Stripper Relationship Specialty Start Date End Date Elkin Livingston MD PCP - General Family Medicine 12/05/[address] [place] [address] documented as of this encounter
--- OUTSIDE RECORDS SUMMARY | 2022-01-23 01:19 | XMS_ITS | Encounter Summary ---
:1955 Author Organization [facility] [place] [address] Care Team Providers Name Role Phone Elkin Livingston MD Primary Care Provider Encounter Details Date Type Department Care Team Description 01/02/2022 Office Visit Ophthalmology at [facility] C Nick Paiz, Macula-off rhegmatogenous re tinal detachment, right (SB, PPV, C3F8 12/07/19); [facility] Epiretinal membrane ([place]) [place] [address] CENTER [phone] [place] [address] Social History Tobacco Use Types Packs/Day Years Used Date Former Smoker Cigarettes 0.25 Quit: 12/04/19 20 Smokeless Tobacco: Never Used Alcohol Use Standard Drinks/Week Comments Yes 21 (1 standard drink = 0.6 oz pure alcoh ol) Sex Assigned at Date Recorded Male 09/14/2020 5:13 PM EDT documented as of this encounter Progress Notes Nick Paiz MD - 01/02/2022 3:00 PM EDT ASSESSMENT: 1. 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 Epiretinal membrane (ERM) of right eye S/p retinal detachment repair OD (SB, PPV, C3F8 12/07/19). S/p CE/IOL Visual Acuity Visual Acuity (Snellen - Linear) Right Left Dist sc 20/70 20/40 +2 Dist ph sc 20/40 20/20 Near cc 20/25-1 20/40 OCT: stable PLAN: Retina attached and stable. He's functioning well. No plans for further surgery. Sent note to [facility] Follow up with [facility] for annual exams. Retina PRN I, Charlie Joe, have performed the documentation for this encounter in the presence of and acting as ascribe for Nick Paiz MD. I have seen the patient in person and reviewed the resident's history and I agree with the details as written. The assessment and plan were formulated in discussion with me and I agree with them as documented. Nick Paiz MD documented in this encounter [...] section. Epiretinal membrane (ERM) of right eye documented [...] eye documented in this encounter Care Teams Telegraph Service Rater Relationship Specialty Start Date End Date Elkin Livingston MD PCP - General Family Medicine 12/05/[address] [place] [address] documented as of this encounter
--- OUTSIDE RECORDS SUMMARY | 2022-01-23 01:19 | XMS_ITS | Encounter Summary ---
:1955 Author Organization [facility] [place] [address] Care Team Providers Name Role Phone Elkin Livingston MD Primary Care Provider Reason for Visit Reason Comments Blurred Vision Glare Encounter Details Date Type Department Care Team Description 03/04/2020 Office Visit Ophthalmology at [facility] C Ezequiel Esparza Combined forms of age-relate d cataract of right eye; [facility] MD Nathaly Macula-off rhegmatogenous retinal detach ment, right (SB, PPV, C3F8 12/07/19); [facility] [place] [address] CENTER [phone] [place] [address] Social History Tobacco Use Types Packs/Day Years Used Date Former Smoker Cigarettes 0.25 Quit: 12/04/19 20 Smokeless Tobacco: Never Used Alcohol Use Standard Drinks/Week Comments Yes 21 (1 standard drink = 0.6 oz pure alcoh ol) Sex Assigned at Date Recorded Male 09/14/2020 5:13 PM EDT documented as of this encounter Progress Notes Ezequiel Esparza MD - 03/04/2020 7:30 AM EDT Assessment/Plan: Andrea Alva is a 65 y.o. male with the following ophthalmic issues: 1. Cataract OD 2. S/p VTX/SB for mac-off RD repair OD 3. Anisometropia/presbyopia Discussed cataract surgery, process, recovery, Risks/Benefits/Alternatives, and the option of waiting. AAO cataract surgery pamphlet given to patient. Reviewed the chance of WORSE vision, damage to theeye, need for further treatment or surgery, possible need for strong glasses, imbalance between eyes, other problems possible. Lens options and refractive targets reviewed. Reiterated that refractive target is an estimate; we do not have full control over what the end result is. Questions answered. Andrea Alva expresses understanding, requests cataract surgery OD. Informed consent form reviewed and signed. Andrea Alva was informed of the opportunity to retain a copy of the Consent Form. Discussed option of presbyopic IOL to try to minimize need for glasses (not being used at [facility], but available elsewhere). Andrea Alva declines presbyopic IOL and requests single vision IOL. Amount of astigmatism mild: no toric IOL anticipated Dominant eye: OD Refractive target: distance documented in this encounter Plan of Treatment Not on filedocumented as of this encounter Visit Diagnoses Diagnosis Combined forms of age-related cataract o f right eye Other and combined forms of senile catar act Macula-off rhegmatogenous retinal detach ment, right (SB, PPV, C3F8 12/07/19) Anisometropia documented in this encounter Care Teams Risk Consultant Relationship Specialty Start Date End Date Elkin Livingston MD PCP - General Family Medicine 12/05/[address] [place] [address] documented as of this encounter
--- OUTSIDE RECORDS SUMMARY | 2022-01-23 01:20 | XMS_ITS | Encounter Summary ---
:1955 Author Organization [facility] [place] [address] Care Team Providers Name Role Phone Elkin Livingston MD Primary Care Provider Reason for Visit Reason Comments Blurred Vision Encounter Details Date Type Department Care Team Description 12/04/2019 Office Visit Ophthalmology at [facility] Nick Paiz, Macula-off [facility] rhegmatogenous retinal [facility] detachment, [place] [address] [place] [address] [place] [address] Social History Tobacco Use Types Packs/Day Years Used Date Current Every Day Smoker Smokeless Tobacco: Never Used Alcohol Use Standard Drinks/Week Comments Yes 0 (1 standard drink = 0.6 oz pure alcoho l) Sex Assigned at Date Recorded Male 09/14/2020 5:13 PM EDT documented as of this encounter Progress Notes Nick Paiz MD - 12/04/2019 4:30 PM EDT ASSESSMENT: 1. Macula-off rhegmatogenous retinal detachment, right ???HPI reviewed and verified with the patient?? He is otherwise healthy No fam hx of RD No trauma Visual Acuity Visual Acuity (Snellen - Linear) Right Left Dist sc 20/200 20/20 Extended Ophthalmoscopy Performed Today 12/04/19 Indication: Retinal detachment right Technique: A) Indirect ophthalmoscopy with scleral depression B) Slit lamp exam with 90D/78D lens OD: superior phakic RD with at least 2 breaks OS: WNL PLAN: Needs surgery for phakic RD this week. Scleral buckle and PPV Recently saw PCP but suggest he get formal pre-op H and P He lives with AAO video shown Consent form signed Extensive discussion regarding findings of Macula-off rhegmatogenous retinal detachment, right was carried out. The development of Macula-off rhegmatogenous retinal detachment, right has been reviewed.Surgical repair was discussed at length, including potential complications such as retinal tears, bleeding, infection, glaucoma, scar tissue, double vision and loss of vision. Progression/development of cataract was discussed. It was explained that significant post operative restrictions may be neededfor successful repair, such as specific positioning and frequent topical medications. Successful repair of Macula-off rhegmatogenous retinal detachment, right does not guarantee visual improvement frompre-operative levels. Slow visual recovery over months time should be expected. Nick Paiz MD documented in this encounter Miscellaneous Notes Addendum Note - Nick Paiz MD - 12/04/2019 4:30 PM EDT Addended by: NICK PAIZ on: 12/05/2019 10:58 AM Modules accepted: Orders, SmartSet documented in this encounter Plan of Treatment Not on filedocumented as of this encounter Procedures Procedure Name Priority Date/Time Associated Diagnosis Comme nts VITRCTMY W/WO SCLER Routine 12/05/2019 10:57 AM Macula-Off Rhe gmatogenous MORRELL FOR RETINAL EDT Retinal Detachment, Righ t DETACH W/WO AIR/GAS/LASER/CRYO documented in this encounter Visit Diagnoses Diagnosis Macula-off rhegmatogenous retinal detach ment, right documented in this encounter Care Teams Baker Biscuit Relationship Specialty Start Date End Date Elkin Livingston MD PCP - General Family Medicine 12/05/[address] [place] [address] documented as of this encounter
--- OUTSIDE RECORDS SUMMARY | 2022-01-23 01:20 | XMS_ITS | Encounter Summary ---
:1955 Author Organization [facility] Address [facility] [place] [address] Care Team Providers Name Role Phone Elkin Livingston MD Primary Care Provider Reason for Visit Reason Comments Veil Over Vision Consultation (Urgent) - Closed Specialty Diagnoses / Procedures Referred By Contact Refer red To Contact Ophthalmology Diagnoses bullous superior large retinal decachment ? mac on? Jean Pierre Faith MD Miller, Donald M, MD [address] [place] [address] [address] [place] [address] [place] [address] Fax: Referral ID Status Reason Start Date Expiration Date Visits V isits Requested Authorized [id number] Closed Consult, 12/04/2019 12/03/2020 1 1 Test & Treat Encounter Details Date Type Department Care Team Description 12/04/2019 Office Visit Ophthalmology at [facility] Ezequiel Morgan Macula-off [facility] MD Nathaly rhegmatogenous retinal Drive [facility] detachment, [place] [address] CENTER [phone] [place] [address] Social History Tobacco Use Types Packs/Day Years Used Date Current Every Day Smoker Smokeless Tobacco: Never Used Alcohol Use Standard Drinks/Week Comments Yes 0 (1 standard drink = 0.6 oz pure alcoho l) Sex Assigned at Date Recorded Male 09/14/2020 5:13 PM EDT documented as of this encounter Progress Notes Ezequiel Esparza MD - 12/04/2019 3:00 PM EDT Assessment/Plan: Andrea Alva is a 64 y.o. male with the following ophthalmic issues: 1. Retina detachment OD - appears to be macula off To Dr. Paiz now documented in this encounter Plan of Treatment Not on filedocumented as of this encounter Visit Diagnoses Diagnosis Macula-off rhegmatogenous retinal detach ment, right documented in this encounter Care Teams Gizzard Peeler Relationship Specialty Start Date End Date Elkin Livingston MD PCP - General Family Medicine 12/05/[address] [place] [address] documented as of this encounter
--- OUTSIDE RECORDS SUMMARY | 2022-01-23 01:20 | XMS_ITS | Encounter Summary ---
:1955 [place] [address] Care Team Providers Name Role Phone Elkin Livingston MD Primary Care Provider Encounter Details Date Type Department Care Team Description 12/07/2019 Anesthesia Event Main Operating Room Mary Valerio MD [facility] [place] [address] [facility] Stephania Cooney MD [facility] [place] [address] [place] [address] Anesthesia Record Procedure Summary Procedure Name Responsible Anesthesia Start Anesthesia Stop Anesthesiologist Time Time REPAIR RETINAL Mary Venegas MD 12/07/19 1307 12/07/19 154 6 DETACHMENT W/ VITRECTOMY, SCLERAL BUCKLE; AIR,GAS,OIL,LASER,CR YO (WRVU 15.19) (Right Eye) Events Date Time Event Comment 12/07/2019 1305 1307 AN Verify 1307 Start 1307 An Start Data 1307 An Induction 1317 An Intubation 1318 Anesthesia Ready 1332 Break/Relief In I assumed care f or Break Relief before which we: 1. Identifie d the patient 2. Identified the responsible provider(s) 3. Reviewed the pertinent medica l history 4. Discussed the surgical plan an d course 5. Reviewed intra-op anesthesia manag ement and issues during anesthesia 6. Se t expectations for the relief (and/or post-pro cedure) period 7. Allowed opportunity for questions and acknowledgement of understanding DEEPTI FIELDS, VEGETABLE TIER 1337 Procedure Start 1402 Break/Relief Out 1424 Break/Relief In venegas 1447 Break/Relief Out 1526 Extubation/LMA Out 1529 an stop data 1545 Recovery or ICU Handoff Patient care was transferred to the destination unit staff after review of the patient's medica l history, current anesthetic/surgi maryse status and plan, according to the Provider Handoff Checklist. 1546 Stop Name Total Propofol 300 mg Propofol INF 449.79 mg fentaNYL 75 mcg Midazolam 2 mg IV Lidocaine 80 mg Ondansetron 8 mg ePHEDrine 20 mg dexamethasone (Decadron) injection 4 mg ketorolac (TORADOL) injection 15 mg 15 mg Dexmedetomidine 8 mcg Lactated Ringers 1,300 mL Agents Name O2 Air N2O Sevoflurane (et) Blood No blood administrations on file. Lines, Drains, and Airways Type Details Placement Removal PIV 12/07/19; 1239; metacarpal 12/07/19 1239 by Mcdaniels , 12/07/19 1649 by vein (top of hand), left; ZECHARIAH Garrett Amelia L, RN [id number] catheter system; 20 gauge, 1 in length; intradermal injection, tolerated well; no longer indicated, catheter/device intact; 12/07/19; 1649 Supraglottic Mask Ventilation: Easy 12/07/19 1322 by Eros, 12/07/19 1526 by (1); LMA Type: air-Q; LMA MD Eros Molina Taylor J, MD Size: (4.5); Inserted by: Chapincito Powell MS4 Incision 12/07/19; 1336; eye; 12/07/19 1336 by 01/12/22 1 715 by 01/12/22 (LDA cleanup Marleni Bruno RN Mull er, Dierdre L utility RA#[id number]); 1715 (LDA cleanup utility RA#[id number]) documented in this encounter Social History Tobacco Use Types Packs/Day Years Used Date Current Every Day Smoker Cigarettes 0.25 Smokeless Tobacco: Never Used Alcohol Use Standard Drinks/Week Comments Yes 21 (1 standard drink = 0.6 oz pure alcoh ol) Sex Assigned at Date Recorded Male 09/14/2020 5:13 PM EDT documented as of this encounter OR Notes Anesthesia Preprocedure Evaluation - Mary Venegas MD - 12/06/2019 4:28 PM EDT Pre-Anesthesia Evaluation for: Andrea Alva a 64 y.o. male. Procedure(s): REPAIR RETINAL DETACHMENT W/ VITRECTOMY, SCLERAL BUCKLE; AIR,GAS,OIL,LASER,CRYO (WRVU 15.19) There are no active problems to display for this patient. Past Medical History: Diagnosis Date ??? Allergy ??? Arthritis ??? Senile macular degeneration History reviewed. No pertinent surgical history. Social History Tobacco Use ??? Smoking status: Current Every Day Smoker Packs/day: 0.25 Types: Cigarettes ??? Smokeless tobacco: Never Used Substance Use Topics ??? Alcohol use: Yes Alcohol/week: 21.0 standard drinks Types: 14 Cans of beer, 7 Shots of liquor per week Social History Substance and Sexual Activity Drug Use Never Allergies Allergen Reactions ??? Cashew Nut Medications: MAR and/or home medications have been reviewed. Physical Exam: There were no vitals filed for this visit. There is no height or weight on file to calculate BMI. Airway Assessment: Mallampati: I TM distance: >3 FB Neck ROM: full Cardiovascular Assessment: Rhythm: regular Rate: normal Pulmonary Assessment: breath sounds clear to auscultation Dental Assessment: Comment: sonam [facility] Assessment: IV access: Peripheral line Other exam findings: [facility] Anesthesia Plan: ASA 2 general, with a(n) intravenous induction 64 y.o. male current smoker who presents for right repair of retinal detachment / laser pars plana vitrectomy. PMH: - Right retinal detachment - Current 2-3 cigs PPD tobacco smoker - Heavy ETOH use (~3 drinks/day) Past Anesthesia History: - No prior anesthesia or airway recoreds available - No personal history of anesthetic complications NKDA PLAN NPO status adequate GA with LMA, standard ASA monitors. PIVx1 The patient was informed of the risks of anesthesia, and consent was obtained. The risks of anesthesia include, but are not limited to, PONV, pain, sore throat, and other rare but serious complicationssuch as major organ damage, allergies, blood transfusions, intraoperative awareness, and dental/lip trauma. Region - Other Informed Consent: Anesthetic plan and risks discussed with patient. Use of blood products discussed with patient who. Plan discussed with resident and attending. PAT Clinic Note documented in this encounter Plan of Treatment Not on filedocumented as of this encounter Visit Diagnoses Not on filedocumented in this encounter Administered Medications Inactive Administered Medications - up to 3 most recent administrations Medication Order MAR Action Action Date Dose Rate Site dexamethasone (Decadron) Given 12/07/2019 1:47 PM 2 mg 19- Surgical Site injection EDT ONCE PRN, Starting on Zakia 12/07/19 at 1347, Until Zakia 12/07/19 at 1850, Intra-Operative (Intra-Procedure), Routine Given 12/07/2019 1:17 PM EDT 4 mg dexmedetomidine (PRECEDEX) injection Given 12/07/2019 3:13 PM EDT 8 mcg PRN, Starting on Zakia 12/07/19 at 1513, Until Zakia 12/07/19 at 1550, Anesthesia Intra-op, Routine ePHEDrine 5 mg/mL multi-dose injection Given 12/07/2019 2:53 PM EDT 5 mg Intravenous, PRN, Starting on Zakia 12/07/19 at 1322, Until Zakia 12/07/19 at 1550, Anesthesia Intra-op, Routine Given 12/07/2019 2:38 PM EDT 5 mg Given 12/07/2019 2:23 PM EDT 5 mg fentaNYL 50 mcg/mL multi-dose injection Given 12/07/2019 3:00 PM EDT 25 mcg Intravenous, PRN, Starting on Zakia 12/07/19 at 1311, Until Zakia 12/07/19 at 1550, Anesthesia Intra-op, Routine Given 12/07/2019 1:39 PM EDT 25 mcg Given 12/07/2019 1:11 PM EDT 25 mcg ketorolac (TORADOL) injection Given 12/07/2019 3:00 PM EDT 15 mg PRN, Starting on Zakia 12/07/19 at 1500, Until Zakia 12/07/19 at 1550, Anesthesia Intra-op, Routine lactated ringers infusion New Bag 12/07/2019 1:07 PM EDT CONTINUOUS PRN, Starting on Zakia 12/07/19 at 1307, Until Zakia 12/07/19 at 1550, Anesthesia Intra-op lidocaine (PF) (XYLOCAINE) 100 mg/5 mL (2 %) Given 0 1:11 PM EDT 80 mg injection Intravenous, PRN, Starting on Zakia 12/07/19 at 1311, Until Zakia 12/07/19 at 1550, Anesthesia Intra-op, Routine midazolam (PF) (VERSED) multi-dose injec tion Given 12/07/2019 1:07 PM EDT 2 mg Intravenous, PRN, Starting on Zakia 12/07/19 at 1307, Until Zakia 12/07/19 at 1550, Anesthesia Intra-op, Routine ondansetron (ZOFRAN) injection Given 12/07/2019 3:01 PM EDT 4 mg Intravenous, PRN, Starting on Azkia 12/07/19 at 1501, Until Zakia 12/07/19 at 1550, Anesthesia Intra-op, Routine Given 12/07/2019 1:24 PM EDT 4 mg propofol (DIPRIVAN) 10 mg/mL bolus injection Given 0 3:07 PM EDT 30 mg (Anesthesia) Intravenous, PRN, Starting on Zakia 12/07/19 at 1314, Until Zakia 12/07/19 at 1550, Anesthesia Intra-op Given 12/07/2019 1:39 PM EDT 20 mg Given 12/07/2019 1:14 PM EDT 250 mg propofol (DIPRIVAN) infusion Rate/Dose 12/07/2019 3:00 25 mcg/kg/min 14.4 mL/hr Intravenous, CONTINUOUS PRN, Change PM EDT Starting on Zakia 12/07/19 at 1332, Until Zakia 12/07/19 at 1550, Anesthesia Intra-op, Routine New Bag 12/07/2019 1:32 PM EDT 50 mcg/kg/min 28.7 mL/hr documented in this encounter Care Teams Dressage Instructor Relationship Specialty Start Date End Date Elkin Livingston MD PCP - General Family Medicine 12/05/[address] [place] [address] documented as of this encounter
--- OUTSIDE RECORDS SUMMARY | 2022-01-23 01:20 | XMS_ITS | Encounter Summary ---
:1955 [place] [address] Care Team Providers Name Role Phone Elkin Livingston MD Primary Care Provider Encounter Details Date Type Department Care Team Description 12/07[facility]2019 [facility] [place] [address] [place] [address] [phone] Social History Tobacco Use Types Packs/Day Years Used Date Current Every Day Smoker Cigarettes 0.25 Smokeless Tobacco: Never Used Alcohol Use Standard Drinks/Week Comments Yes 21 (1 standard drink = 0.6 oz pure alcoh ol) Sex Assigned at Date Recorded Male 09/14/2020 5:13 PM EDT documented as of this encounter Last Filed Vital Signs Vital Sign Reading Time Taken Comments Blood Pressure 112/65 12/07/2019 4:15 PM EDT Pulse 65 12/07/2019 11:51 AM EDT Temperature 36.4 ??C (97.5 ??F) 12/07/2019 3:34 PM EDT Respiratory Rate 16 12/07/2019 4:15 PM EDT Oxygen Saturation 91% 12/07/2019 4:15 PM EDT Inhaled Oxygen Concentration - - Weight 95.7 kg (211 lb) 12/07/2019 11:51 AM EDT Height 181.6 cm (5' 11.5) 12/07/2019 11:51 AM EDT Body Mass Index 29.02 12/07/2019 11:51 AM EDT documented in this encounter Discharge Instructions Patient InstructionsNick Paiz MD - 12/07/2019 12:21 PM EDT KEEP PATCH ON OVERNIGHT BRING ALL DROPS TO APPOINTMENT TOMORROW POSITIONING: FACE DOWN AT LEAST 30-45 DEGREES 80-90% OF EVERY HOUR. THIS MEANS TAKE A 5-10 MIN BREAKEACH HOUR. OK TO MOVE AROUND LONG FACE IS DOWN. OK TO SLEEP ON LEFT SIDE LONG FACE IS DOWN. AVOID FACE UP POSITION. DO NOT LIE ON YOUR BACK. MAY USE OVER THE COUNTER PAIN MEDICATIONS NEEDED (TYLENOL 1000 mg THREE TIMES DAILY ALTERNATING WITH IBUPROFEN 600 mg THREE TIMES DAILY ) AVOID HEAVY LIFTING, STRAINING, VALSALVA, RETCHING, VOMITING, COUGHING. documented in this encounter Progress Notes Yvette Oneal RN - 12/07/2019 4:50 PM EDT Patient discharged to home. IV removed, site benign. Discussed pain management with patient, pain tolerable. Patient has all belongings and supplies needed. Patient received AVS and prescriptions. These were reviewed with patient and patients , patient verbalizes understanding of AVS. All questions answered. Patient encouraged to call with questions or concerns. Patient discharged to home with family. Yvette Oneal RN documented in this encounter H&P Notes Nick Paiz MD - 12/07/2019 12:20 PM EDT Patient Name: Andrea Alva Patient Age: 64 y.o. Birthdate: 1955 Admit date: 12/07/2019 Attending Physician: Nick Paiz MD History and Physical Reviewed. No changes noted. Most Recent Vitals: 12/07/19 1151 BP: 136/83 Pulse: 65 Resp: 16 Temp: 37.1 ??C (98.8 ??F) SpO2: 98% H: RR L: Breathing comfortable. Clear. Ok to proceed with eye surgery as planned. Nick Paiz MD documented in this encounter Nursing Notes Marleni Bruno RN - 12/07/2019 3:00 PM EDT C3F8 Gas used at 15% Bracelet applied to patient Gas Card in patients black bag documented in this encounter Miscellaneous Notes Op Note - Nick Paiz MD - 12/07/2019 3:48 PM EDT [facility] [place] Patient Name: Andrea Alva : [id number] MR#: [id number] Case Date: 12/07/2019 Surgeon: Surgeon(s) and Role: * Nick Paiz MD - Primary Preoperative diagnosis: Retinal Detachment RIGHT Postoperative diagnosis: Retinal Detachment RIGHT Procedure(s) (LRB): REPAIR RETINAL DETACHMENT W/ VITRECTOMY, SCLERAL BUCKLE; AIR,GAS,OIL,LASER,CRYO (WRVU 15.19) (Right) 1. 5mm SB and 3.75 [address]leeve Joined in ST Quadrant 2. 25 G PPV, endolaser, 15% C3F8 Gas Anesthesia: General Estimated Blood Loss: * No values recorded between 12/07/2019 1:36 PM and 12/07/2019 3:16 PM * Specimens removed during surgery: None Drains: * No LDAs found * Surgical Closure: Primary Closure - skin incision is completely closed without any wires, carlyn, drains or other devices Disposition: awakened from anesthesia, extubated and taken to the recovery room in a stable condition, having suffered no apparent untoward event. Condition: doing well without problems INDICATIONS FOR PROCEDURE: This is a 64 y.o. 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 In order to improve his vision, he elected to proceed with surgery. Risks, benefits, and alternatives wereexplained to the patient in great detail and he decided to proceed with surgery. The patient is phakic, and he is aware that cataract will form after the surgery and is an expected side effect. He will need cataract surgery in the future for full visual rehabilitation. DESCRIPTION OF PROCEDURE: The patient was brought to the operative suite at the [facility] where a time-out was done to confirm correct eye, correct patient, and correct procedure. The right eye was prepped and draped in the normal sterile fashion for intraocular surgery and a wire lid speculum was used throughout the case to retract the eyelids. General anesthesia was induced and maintained throughout the case without complications. Using blunt Dar scissors and tooth forceps, a 360 conjunctival peritomy was made without complication. The dissection was carried down to bare sclera in each of the four scleral quadrants. Each of the four rectus muscles was isolated and tied off using 2-0 silk ties. The four scleral quadrants were examined and found to be of normal thickness and caliber. A 5mm scleral buckle band was passed underneath each of the four rectus muscles and joined in the superotemporal quadrant using a 3.75mm Watzke sleeve. The buckle was secured to the bare sclera using 5-0 nylon sutures with a horizontal mattress stitch. The buckle was tightened to an appropriate level allowing for good indentation and imbrication of the sclera. It was trimmed appropriately before the end of the case. Attention was then turned to the vitrectomy portion of the case. Using the Yuri 25-gauge vitrectomysystem, trocars were placed in the inferotemporal, superotemporal and superonasal quadrants approximately 3.5 mm from the limbus. An infusion cannula was placed in the inferotemporal quadrant and its position was confirmed by direct visualization with the light pipe before it was turned on. Using the vitrector and the light pipe, the eye was entered and a 360 core vitrectomy was performed and the vitreous was shaved out to the base as safely as possible. A posterior vitreous detachment was already evident. Close examination of the retina revealed a bolus superior and temporal retinal detachment from approximately 7:00 to 1:00. Multiple breaks were noted in the superotemporal periphery between 10 and 12. The vitreous was shaved around these breaks and in a 360 fashion out to the vitreous base and to at least the anterior edge of the scleral buckle. The breaks were marked with endodiathermy. Subretinal fluid was drained through the existing breaks using a soft-tipped cannula. An air-fluid exchange was performed and the retina flattened appropriately and the breaks were supported by the scleral buckle. Endolaser was used to surround each of the retinal breaks and in a broad fashion along the anterior edge of the buckle for the extent of the detachment from 7:00 to 1:00. Additional air-fluid exchanges were performed to remove all posterior pole fluid. 15% C3F8 gas was drawn up and instilled into the eye for complete gas air exchange. Each of the trocars was removed sequentially and the sclerotomies were closed using interrupted 8-0 vicryl sutures. The Barraquer tonometer was used to confirm that the IOP was was in a acceptable range. The silk ties used to isolate the muscles were removed. The conjunctiva and tenons were reapproximated to the limbus using additional interrupted 8-0 vicryl sutures. Subconjunctival dexamethasone wasapplied followed by a rob-bulbar block consisting of 0.75% Bupivacaine. The eye was left adequately pressurized, air and watertight. A drop of antibiotic, and if needed a cycloplegic and an IOP lowering drop along with antibiotic ointment was placed in the eye followed by a patch and shield. The patient was awoken from general anesthesia, positioned appropriately immediately after extubation to tamponade the retina as needed, and brought to the recovery room in stable condition. They have follow up in the retina clinic in 1 day. Attestation: Case Date: 12/07/2019 I performed this procedure without the involvement of a resident. Nick Paiz MD 12/07/2019 documented in this encounter Plan of Treatment Not on filedocumented as of this encounter Procedures Procedure Name Priority Date/Time Associated Diagnosis Comme nts REPAIR RETINAL Yes 12/07/2019 1:05 Macula-off DETACHMENT W/ PM EDT rhegmatogenous retinal VITRECTOMY, SCLERAL detachment, right BUCKLE; AIR,GAS,OIL,LASER,CR YO (WRVU 15.19) IMPLANTABLE DEVICES 12/07/2019 12:00 Resu lts for this SCAN AM EDT procedure are i n the results section. documented in this encounter Results SCAN DOC: IMPLANTABLE DEVICES (12/07/2019 12:00 AM EDT) Narrative 12/07/2019 12:00 AM EDT This result has an attachment that is no t available. Ordered by an unspecified provider. Scanning Provider MEDIA MGR SCAN EXT ORDR/RSLT documented in this encounter Visit Diagnoses Not on filedocumented in this encounter Administered Medications Inactive Administered Medications - up to 3 most recent administrations Medication Order MAR Action Action Date Dose Rate Site acetaminophen (Tylenol) tablet Given 12/07/2019 12:04 PM EDT 1,0 00 mg 1,000 mg 1,000 mg, Oral, ONCE, 1 dose, On Zakia 12/07/19 at 1215, Administer with SIP of H2O only., Day of Surgery (Day of Procedure), Routine cyclopentolate (CYCLODRYL) 1 % ophthalmic Given 12/07/2019 12:28 PM EDT 1 drop solution 1 drop 1 drop, Right Eye, EVERY 5 MIN, 3 doses, First dose on Zakia 12/07/19 at 1215, Last dose on Zakia 12/07/19 at 1225, Day of Surgery (Day of Procedure), Routine Given 12/07/2019 12:25 PM EDT 1 drop Given 12/07/2019 12:12 PM EDT 1 drop lactated ringers infusion New Bag 12/07/2019 12:40 PM EDT 1,000 mLs 100 mL/hr 1,000 mL, at 100 mL/hr, Intravenous, CONTINUOUS, Starting on Zakia 12/07/19 at 1215, Until Zakia 12/07/19 at 1649, Day of Surgery (Day of Procedure) moxifloxacin (VIGAMOX) 0.5 % ophthalmic Given 12/07/2019 12:25 P M EDT 1 drop solution 1 drop 1 drop, Right Eye, EVERY 5 MIN, 3 doses, First dose on Zakia 12/07/19 at 1215, Last dose on Zakia 12/07/19 at 1225, Day of Surgery (Day of Procedure), Routine Given 12/07/2019 12:20 PM EDT 1 drop Given 12/07/2019 12:13 PM EDT 1 drop PHENYLephrine (MYDFRIN) 2.5 % ophthalmic Given 12/07/2019 12:25 PM EDT 1 drop solution 1 drop 1 drop, Right Eye, EVERY 5 MIN, 3 doses, First dose on Zakia 12/07/19 at 1215, Last dose on Zakia 20 at 1225, Day of Surgery (Day of Procedure), Routine Given 12/07/2019 12:20 PM EDT 1 drop Given 12/07/2019 12:13 PM EDT 1 drop prednisoLONE acetate (PRED FORTE) 1 % Given 12/07/2019 12:13 PM EDT 1 drop ophthalmic suspension 1 drop 1 drop, Right Eye, ONCE, 1 dose, On Zakia 12/07/19 at 1215, Day of Surgery (Day of Procedure), Routine tropicamide (MYDRIACYL) 1 % ophthalmic Given 12/07/2019 12:25 PM EDT 1 drop solution 1 drop 1 drop, Right Eye, EVERY 5 MIN, 3 doses, First dose on Zakia 12/07/19 at 1215, Last dose on Zakia 12/07/19 at 1225, Day of Surgery (Day of Procedure), Routine Given 12/07/2019 12:20 PM EDT 1 drop Given 12/07/2019 12:14 PM EDT 1 drop documented in this encounter Active and Recently Administered Medications Times are shown in EDT. Scheduled Medication Order 12/05/2019 12/06/2019 12/07/2019 acetaminophen (Tylenol) tablet 1,000 mg (COMPLETED) 1204 (Given - Provider: Es Mcdaniels RN) 1,000 mg, Oral, ONCE, 1 dose, Zakia 0 at 1215, Administer with SIP of H2O only., Day of Surgery (Day of Procedure), Routine albuteroL (PROVENTIL) nebulizer solution 2.5 mg 0930 (Due) 2.5 mg, Nebulization, ONCE, 1 dose, Zakia 12/07/19 at 0930, Routine cyclopentolate (CYCLODRYL) 1 % ophthalmic solution 1 drop (COMPL ETED) 1212 (Given - Provider: Es Mcdaniels RN)1225 (Given - Provider: Es Mcdaniels RN)1228 (Given - Provider: Es Mcdaniels, RN) 1 drop, Right Eye, EVERY 5 MIN, 3 doses, First dose on Zakia 12/07/19 at 1215, Last dose on Zakia 12/07/19 at 1225, Day of Surgery (Day of Procedure), Routine moxifloxacin (VIGAMOX) 0.5 % ophthalmic solution 1 drop (COMPLET ED) 1213 (Given - Provider: Es Mcdaniels RN)1220 (Given - Provider: Es Mcdaniels RN)1225 (Given - Provider: Es Mcdaniels RN) 1 drop, Right Eye, EVERY 5 MIN, 3 doses, First dose on Zakia 7//20 at 1215, Last dose on Zakia 7/20 at 1225, Day of Surgery (Day of Procedure), Routine PHENYLephrine (MYDFRIN) 2.5 % ophthalmic solution 1 drop (COMPLE CORTES) 1213 (Given - Provider: Es Mcdaniels RN)1220 (Given - Provider: Es Mcdaniels RN)1225 (Given - Provider: Es Mcdaniels RN) 1 drop, Right Eye, EVERY 5 MIN, 3 doses, First dose on Zakia 7/20 at 1215, Last dose on Zakia 7/20 at 1225, Day of Surgery (Day of Procedure), Routine prednisoLONE acetate (PRED FORTE) 1 % ophthalmic suspension 1 drop (COMPLETED) 1213 (Given - Provider: Es Mcdaniels RN ) 1 drop, Right Eye, ONCE, 1 dose, Zakia 7/ 3 at 1215, Day of Surgery (Day of Procedure), Routine tropicamide (MYDRIACYL) 1 % ophthalmic solution 1 drop (COMPLETE D) 1214 (Given - Provider: Es Mcdaniels RN)1220 (Given - Provider: Es Mcdaniels RN)1225 (Given - Provider: Es Mcdaniels RN) 1 drop, Right Eye, EVERY 5 MIN, 3 doses, First dose on Zakia 7 at 1215, Last dose on Zakia 720 at 1225, Day of Surgery (Day of Procedure), Routine Continuous Medication Order 12/05/2019 12/06/2019 12/07/2019 lactated ringers infusion (CANCELED) 1240 (New Bag - Provider: Es Mcdaniels RN) 1,000 mL, at 100 mL/hr, Intravenous, CON TINUOUS, Starting Zakia 7 at 1215, Until Zakia 7 at 1649, Day of Surgery (Day of Procedure) PRN Medication Order 12/05/2019 12/06/2019 12/07/2019 acetaminophen (Tylenol) tablet 1,000 mg 1,000 mg, Oral, EVERY 6 HOURS PRN, Start ing Zakia 12/07/19 at 1546, Until Zakia 7/23/20 at 1850, Pain, for MODERATE pain (4-6), Should be used concomitantly if other analgesics are ordered. Do not exceed 4,000 mg in 24 hours, Routine balanced salt (BSS PLUS) irrigation solution (CANCELED) 1347 (Given - Provider: Nick Paiz MD - Comment: 0.5ml of epinephrine added) ONCE PRN, Starting Zakia 720 at 1347, Until Zakia 7 at 1850, Intra- Operative (Intra-Procedure), Routine balanced salt (BSS) irrigation solution (CANCELED) 1347 (Given - Provider: Nick Paiz MD) ONCE PRN, Starting Zakia 7 at 1347, Until Zakia 7 at 1850, Intra- Operative (Intra-Procedure), Routine BUpivacaine (PF) (MARCAINE) 0.75 % (7.5 mg/mL) injection (CANCEL ED) 1350 (Given - Provider: Nick Paiz MD) ONCE PRN, Starting Zakia 12/07/19 at 1350, Until Zakia 7 at 1850, Intra- Operative (Intra-Procedure), Routine dexamethasone (Decadron) injection (CANCELED) 1317 (Given - Provider: Mary Venegas MD)1347 (Given - Provider: Nick Paiz MD) ONCE PRN, Starting Zakia 7 at 1347, Until Zakia 7 at 1850, Intra- Operative (Intra-Procedure), Routine EPINEPHrine injection solution (CANCELED) 1348 (Given - Provider: Nick Paiz MD - Comment: Added to BSS Plus) ONCE PRN, Starting Zakia 12/07/19 at 1348, Until Zakia 720 at 1850, Intra- Operative (Intra-Procedure), Routine ibuprofen (Advil;Motrin) tablet 800 mg 800 mg, Oral, EVERY 6 HOURS PRN, Startin g Zakia 12/07/19 at 1546, Until Zakia 720 at 1850, Pain, for MODERATE pain (4-6), Should be used concomitantly if other analgesics are ordered. Do not administer with ketorolac., Routine moxifloxacin (VIGAMOX) 0.5 % ophthalmic solution (CANCELED) 1507 (Given - Provider: Marleni Bruno RN) ONCE PRN, Starting Zakia 12/07/19 at 1348, Until Zakia 12/07/19 at 1850, Intra- Operative (Intra-Procedure), Routine fnueqsor-oodehrfbm-gtynodtsglqdr (DEXACI NE) 3.5 mg/g-10,000 unit/g-0.1 % ophthalmic ointment (CANCELED) 1349 (Giv en - Provider: Marleni Bruno RN - Comment: Post Op) ONCE PRN, Starting Zakia 12/07/19 at 1349, Until Zakia 12/07/19 at 1850, Intra- Operative (Intra-Procedure), Routine povidone-iodine 5 % ophthalmic solution (CANCELED) 1349 (Given - Provider: Marleni Bruno RN - Comment: Prep) ONCE PRN, Starting Zakia 12/07/19 at 1349, Until Zakia 12/07/19 at 1850, Intra- Operative (Intra-Procedure), Routine Sodium Hyaluronate Syrg (CANCELED) 1349 (Given - Provider: Marleni Bruno RN) ONCE PRN, Starting Zakia 12/07/19 at 1349, Until Zakia 12/07/19 at 1850, Intra- Operative (Intra-Procedure) tetracaine (PF) (PONTOCAINE) ophthalmic solution (CANCELED) 1349 (Given - Provider: Marleni Bruno RN - Comment: Prior to surgical prep) ONCE PRN, Starting Zakia 12/07/19 at 1349, Until Zakia 12/07/19 at 1850, Intra- Operative (Intra-Procedure), Routine timoloL (TIMOPTIC) 0.5 % ophthalmic solution (CANCELED) 1508 (Given - Provider: Marleni Bruno RN - Comment: Post Op) ONCE PRN, Starting Zakia 12/07/19 at 1508, Until Zakia 12/07/19 at 1850, Intra- Operative (Intra-Procedure), Routine documented in this encounter Care Teams Science Teacher Relationship Specialty Start Date End Date Elkin Livingston MD PCP - General Family Medicine 12/05/[address] [place] [address] [address] [place] [address] documented as of this encounter
--- OUTSIDE RECORDS SUMMARY | 2022-01-23 01:20 | XMS_ITS | Encounter Summary ---
:1955 [place] [address] Care Team Providers Name Role Phone Elkin Livingston MD Primary Care Provider Encounter Details Date Type Department Care Team Description 12/07/2019 Surgery Main Operating Room Jennifer Paiz MD REPAIR RETINAL [facility]/ [facility] DR JEWELL, [facility] [place] [address] AIR,GAS,OIL,[place] [address] (WRVU 15.19) [phone] Social History Tobacco Use Types Packs/Day Years Used Date Current Every Day Smoker Cigarettes 0.25 Smokeless Tobacco: Never Used Alcohol Use Standard Drinks/Week Comments Yes 21 (1 standard drink = 0.6 oz pure alcoh ol) Sex Assigned at Date Recorded Male 09/14/2020 5:13 PM EDT documented as of this encounter Last Filed Vital Signs Vital Sign Reading Time Taken Comments Blood Pressure 136/83 12/07/2019 11:51 AM EDT Pulse 65 12/07/2019 11:51 AM EDT Temperature 37.1 ??C (98.8 ??F) 12/07/2019 11:51 AM EDT Respiratory Rate 16 12/07/2019 11:51 AM EDT Oxygen Saturation 98% 12/07/2019 11:51 AM EDT Inhaled Oxygen Concentration - - Weight [...] Paiz MD - 12/07/2019 3:48 PM EDT [facility] Operative Note Patient Name: Andrea Alva : [id number] MR#: [id number] Case Date: 12/07/2019 Surgeon: Surgeon(s) and Role: [...] brought to the operative suite at the [facility] where a time-out was done to confirm [...] ORDR/RSLT documented in this encounter Visit Diagnoses Diagnosis Macula-off rhegmatogenous retinal detach ment, right documented in this encounter Administered Medications Inactive Administered Medications - up to 3 most recent administrations Medication Order MAR Action Action Date Dose Rate Site acetaminophen (Tylenol) tablet Given 12/07/2019 12:04 PM EDT 1,0 00 mg 1,000 mg 1,000 mg, Oral, ONCE, 1 dose, On Zakia 12/07/19 at 1215, Administer with SIP of H2O only., Day of Surgery (Day of Procedure), Routine balanced salt (BSS PLUS) irrigation Given 12/07/2019 1:47 PM EDT 1 Bottle solution ONCE PRN, Starting on Zakia 12/07/19 at 1347, Until Zakia 12/07/19 at 1850, Intra-Operative (Intra-Procedure), Routine balanced salt (BSS) irrigation solution Given 12/07/2019 1:47 PM EDT 3 Bottles ONCE PRN, Starting on Zakia 12/07/19 at 1347, Until Zakia 7 at 1850, Intra-Operative (Intra-Procedure), Routine BUpivacaine (PF) (MARCAINE) Given 12/07/2019 1:50 PM EDT 5 mLs 19- Surgical Site 0.75 % (7.5 mg/mL) injection ONCE PRN, Starting on Zakia 12/07/19 at 1350, Until Zakia 12/07/19 at 1850, Intra-Operative (Intra-Procedure), Routine cyclopentolate (CYCLODRYL) 1 % ophthalmic Given 12/07/2019 12:28 PM EDT 1 drop solution 1 drop 1 drop, Right Eye, EVERY 5 MIN, 3 doses, First dose on Zakia 12/07/19 at 1215, Last dose on Zakia 12/07/19 at 1225, Day of Surgery (Day of Procedure), Routine Given 12/07/2019 12:25 PM EDT 1 drop Given 12/07/2019 12:12 PM EDT 1 drop dexamethasone (Decadron) Given 12/07/2019 1:47 PM EDT 2 mg 19- Surgical Site injection ONCE PRN, Starting on Zakia 12/07/19 at 1347, Until Zakia 12/07/19 at 1850, Intra-Operative (Intra-Procedure), Routine Given 12/07/2019 1:17 PM EDT 4 mg EPINEPHrine injection solution Given 12/07/2019 1:48 PM EDT 0.5 mg 19- S urgical Site ONCE PRN, Starting on Zakia 12/07/19 at 1348, Until Zakia 12/07/19 at 1850, Intra-Operative (Intra-Procedure), Routine lactated ringers infusion New Bag 12/07/2019 12:40 [...] Given 12/07/2019 12:13 PM EDT 1 drop moxifloxacin (VIGAMOX) 0.5 % ophthalmic Given 12/07/2019 3:07 PM EDT 1 drop solution ONCE PRN, Starting on Zakia 12/07/19 at 1348, Until Zakia 12/07/19 at 1850, Intra-Operative (Intra-Procedure), Routine rsmycktd-lgmxexhxo-irjjgfzewssmq Given 12/07/2019 1:49 0.25 Tube s 19- Surgical (DEXACINE) 3.5 mg/g-10,000 unit/g-0.1 PM EDT Site % ophthalmic ointment ONCE PRN, Starting on Zakia 12/07/19 at 1349, Until Zakia 12/07/19 at 1850, Intra-Operative (Intra-Procedure), Routine PHENYLephrine (MYDFRIN) 2.5 % ophthalmic Given 12/07/2019 12:25 PM EDT 1 drop solution 1 drop 1 drop, Right Eye, EVERY 5 MIN, 3 doses, First dose on Zakia 12/07/19 at 1215, Last dose on Zakia 12/07/19 at 1225, Day of Surgery (Day of Procedure), Routine Given 12/07/2019 12:20 PM EDT 1 drop Given 12/07/2019 12:13 PM EDT 1 drop povidone-iodine 5 % ophthalmic Given 12/07/2019 1:49 PM EDT 30 m Ls 19- Surgical Site solution ONCE PRN, Starting on Zakia 12/07/19 at 1349, Until Zakia 12/07/19 at 1850, Intra-Operative (Intra-Procedure), Routine prednisoLONE acetate (PRED FORTE) 1 % Given 12/07/2019 12:13 PM EDT 1 drop ophthalmic suspension 1 drop 1 drop, Right Eye, ONCE, 1 dose, On Zakia 12/07/19 at 1215, Day of Surgery (Day of Procedure), Routine Sodium Hyaluronate Syrg Given 12/07/2019 1:49 PM EDT 1 each ONCE PRN, Starting on Zakia 12/07/19 at 1349, Until Zakia 12/07/19 at 1850, Intra-Operative (Intra-Procedure) tetracaine (PF) (PONTOCAINE) ophthalmic Given 12/07/2019 1:49 PM EDT 1 drop solution ONCE PRN, Starting on Zakia 12/07/19 at 1349, Until Zakia 12/07/19 at 1850, Intra-Operative (Intra-Procedure), Routine timoloL (TIMOPTIC) 0.5 % ophthalmic solu tion Given 12/07/2019 3:08 PM EDT 1 drop ONCE PRN, Starting on Zakia 12/07/19 at 1508, Until Zakia 12/07/19 at 1850, Intra-Operative (Intra-Procedure), Routine tropicamide (MYDRIACYL) 1 % ophthalmic Given [...] 1,000 mg, Oral, ONCE, 1 dose, Zakia 12/06/ 0 at 1215, Administer with SIP of H2O only., Day of Surgery (Day of Procedure), Routine albuteroL (PROVENTIL) nebulizer solution 2.5 mg 0930 (Due) 2.5 mg, Nebulization, ONCE, 1 dose, Zakia 12/07/19 at 0930, Routine cyclopentolate (CYCLODRYL) 1 % ophthalmic solution 1 drop (COMPL ETED) 1212 (Given - Provider: Es Mcdaniels RN)1225 (Given - Provider: Es Mcdaniels RN)1228 (Given - Provider: Es Mcdaniels RN) 1 drop, Right Eye, EVERY 5 MIN, 3 doses, First dose on Zakia 12/07/19 at 1215, Last dose on Zakia 720 [...] Es Mcdaniels RN)1220 (Given - Provider: Es Mcdaniels, RN)1225 (Given - Provider: Es Mcdaniels RN) [...] drop, Right Eye, ONCE, 1 dose, Zakia 7/2 3/20 at 1215, Day of Surgery (Day of [...] 100 mL/hr, Intravenous, CON TINUOUS, Starting Zakia 12/07/19 at 1215, Until Zakia 12/07/19 at 1649, Day of Surgery (Day of Procedure) PRN Medication Order 12/05/2019 12/06/2019 12/07/2019 acetaminophen (Tylenol) tablet 1,000 mg 1,000 mg, Oral, EVERY 6 HOURS PRN, Start ing Zakia 12/07/19 at 1546, Until Zakia 12/07/19 at 1850, Pain, for MODERATE pain (4-6), Should be used concomitantly if other analgesics are ordered. Do not exceed 4,000 mg in 24 hours, Routine balanced salt (BSS PLUS) irrigation solution (CANCELED) 1347 (Given - Provider: Nick Paiz MD - Comment: 0.5ml of epinephrine added) ONCE PRN, Starting Zakia 7 at 1347, Until Zakia 720 at 1850, Intra- Operative (Intra-Procedure), Routine balanced salt (BSS) irrigation solution (CANCELED) 1347 (Given - Provider: Nick Paiz MD) ONCE PRN, Starting Zakia 7/20 at 1347, Until Zakia 720 at 1850, Intra- Operative (Intra-Procedure), Routine BUpivacaine (PF) (MARCAINE) 0.75 % (7.5 mg/mL) injection (CANCEL ED) 1350 (Given - Provider: Nick Paiz MD) ONCE PRN, Starting Zakia 12/07/19 at 1350, Until Zakia 12/07/19 at 1850, Intra- Operative (Intra-Procedure), Routine dexamethasone (Decadron) injection (CANCELED) 1317 (Given - Provider: Mary Venegas MD)1347 (Given - Provider: Nick Paiz MD) ONCE PRN, Starting Zakia 12/07/19 at 1347, Until Zakia 12/07/19 at 1850, Intra- Operative (Intra-Procedure), Routine EPINEPHrine injection solution (CANCELED) 1348 (Given - Provider: Nick Paiz MD - Comment: Added to BSS Plus) ONCE PRN, Starting Zakia 12/07/19 at 1348, Until Zakia 12/07/19 at 1850, Intra- Operative (Intra-Procedure), Routine ibuprofen (Advil;Motrin) tablet 800 mg 800 mg, Oral, EVERY 6 HOURS PRN, Startin g Zakia 12/07/19 at 1546, Until Zakia 12/07/19 at 1850, Pain, for MODERATE pain (4-6), Should be used concomitantly if other analgesics are ordered. Do not administer with ketorolac., Routine moxifloxacin (VIGAMOX) 0.5 % ophthalmic solution (CANCELED) 1507 (Given - Provider: Marleni Bruno RN) ONCE PRN, Starting Zakia 12/07/19 at 1348, Until Zakia 12/07/19 at 1850, Intra- Operative (Intra-Procedure), Routine bzbteqev-zulnuiutz-mtceiupssahci (DEXACI NE) 3.5 mg/g-10,000 unit/g-0.1 % ophthalmic ointment (CANCELED) 1349 (Giv en - Provider: Marleni Bruno RN - Comment: Post Op) ONCE PRN, Starting Zakia 12/07/19 at 1349, Until Zakia 7 at 1850, Intra- Operative (Intra-Procedure), Routine povidone-iodine [...] Routine documented in this encounter Care Teams Aircraft Fueler Relationship Specialty Start Date End Date Elkin Livingston MD PCP - General Family Medicine 12/05/[address] [place] [address] documented as of this encounter
--- OUTSIDE RECORDS SUMMARY | 2022-01-23 01:21 | XMS_ITS | Clinical Summary ---
:1955 Author Organization [facility] Address [address] [place] [address] Care Team Providers Name Role Phone Karmen Kaye MD Primary Care Provider Social History Tobacco Use Types Packs/Day Years Used Date Never Assessed Sex Assigned at Date Recorded Not on file Plan of Treatment Not on file Insurance Payer Benefit Plan / Subscriber ID Effective Dates Phone Addre ss Type Group [facility] [id number] 2020-Present [phone] [id number] [facility] [place] [address] Care Teams Machine Maintenance Mechanic Relationship Specialty Start Date End Date Karmen Kaye MD PCP - General 05/20/[address] [place] [address] (work)
--- OUTSIDE RECORDS SUMMARY | 2022-01-23 01:21 | XMS_ITS | Encounter Summary ---
:1955 Author Organization [facility] Address [address] [place] [address] Care Team Providers Name Role Phone Unknown, Provider Primary Care Provider Encounter Details Date Type Department Care Team Description 05/16/2012 Results Only [facility]- Kurt Omalley MD [phone] [address] [place], [place] [address] (Wo rk) Social History Tobacco Use Types Packs/Day Years Used Date Never Assessed Sex Assigned at Date Recorded Not on file documented as of this encounter Plan of Treatment Not on filedocumented as of this encounter Procedures Procedure Name Priority Date/Time Associated Diagnosis Comme nts SURGICAL PATHOLOGY Routine 05/16/2012 21:24 Resul ts for this EST procedure are i n the results section. documented in this encounter Results SURGICAL PATHOLOGY (05/16/2012 21:24 EST) Pathology Report: SURGICAL PATHOLOGY REPORT EUGENIO BENNETT Reports generated via electronic interface contain alisha ginal data; LAB however they are lacking the format of the original re port. Caution should be taken when reading/interpreting unfo rmatted reports. Name: ? ANDREA CHEEMA ? Accession #: ? [id number] ? : ? 1955 (Age: 57) ??M ? Collect Date: ? 05/16/2012 ? Location: ? [facility] ? Receive Date: ? 013 ? Provider: KURT VALENZUELA MD Copy to: ? Final Pathologic Diagnosis: A. ?Skin of back, right mid, punch biopsy : 1. ?Melanocytic nevus, compound typ e, with unusual architectural features and mild cytologic atypia. ??See microscopic and comment. ? - Lesion does not ext end to biopsy edges in the plane of sections examined. ??- Lesion measures approximately 1.8 [address] to [address] peripheral edge. ??- Lesion measures approximately 3.0 mm to the base. ? B. ??Skin of scapula, left, punch biopsy: ? 1. ?? Melanocytic nev us, compound type, with unusual architectural features and mild cytologic ? atypia. ? - Lesion extends to peripheral edge of biopsy specimen. ? - Lesion measures approximately 1.8 mm to the biopsy base. C. ??Skin of back, left mid, punch biopsy: ? 1. ?? Melanocytic nev us, compound type, with unusual architectural features and mild-moderate ? cytologic atypia. ? - Lesion extends to peripheral edge of biopsy specimen. ? - Lesion measures approximately 2.0 mm to the biopsy base. Comment: ? In specimens (B) and (C), present are atypical melanocytic nevi. ??In specimen (B), the portion of the lesion sampled shows a mild degree of atypia, and in specimen (C), the portion of the lesion sampled shows a mild-moderate degree of atypia. ??Given the provided c linical history that these are smaller samplings of much larger les ions, the findings may not be screening representative of the lesions as a whole. ??Clinical correlation is imperati ve. ??(Dr. Basurto)/[facility] Microscopic Description: ? A, B. ??The epidermis is hyperplastic with elongate and anastomosing rete ridges. ??There is a circumscribed proli feration of melanocytes with epidermal and dermal components. ??The intraepidermal melanocytes are arranged in nests and as individual cells in a lynda tiginous pattern. ??The nests predominate and vary in size, shape, and spacing. ??Some of the nests bridge b etween rete ridges. Although the individual huong nocytes are unevenly spaced in some areas, they show no tendency toward confluent growth or u pward migration. ??The melanocytes are enlarged and show a mild deg ree of nuclear size and shape variation. ??The dermal component consists of nests and cords of similar melanocytes that show steel shot header operator maturation with descent. ??There is papillary dermal f ibroplasia. ?? C. The epidermis is hyperplastic with elongate and serjio stomosing rete ridges. There is a compound prolifer ation of melanocytes with both epidermal and dermal components. ??The junctional melanocytes are arranged in nests and as individual cells. ??The nests predomina te but vary to a mild-moderate degree in size, shape, and spacing. ??The nests are located between and the sides of rete ridges, in addition to at the tips of the ridges. ??Nests b ridge rete ridges. ??Focally, individual melanocytes are prominent and unevenly spaced but show no confluent growth or well-developed upward migration. ??The melanocytes are enlarged and have ill-defined cytoplasm containing melanin pigment. ??The nuclei show a mild-moderate degree of size and shape variation with occasional large, irregular forms. ??The dermal component consists of nests and cords of similar melanocytes that show steel shot header operator maturation with descent. ??There is papillary dermal fibroplasia. ??Deeper levels ??have been examin ed. (Dr. Basurto)/[facility] Document reviewed and electronically signed by: JERMAN BASURTO MD Report ??Date: 05/20/2012 16:05 By the signature above, the attending physician certif ies that he/she has personally conducted a gross and/or microscopic examin ation of the described specimens and rendered or confirmed the above diagnosi s. Specimen(s) Received: A. ?Changing mole (#1) B. ? L scapula punch of mole (#2) C. ? Mid back irregular large mole punch (#3) Clinical History: ? H/O excess sun exposure. Multiple atypical nevi . 3 of most suspicious lesions biopsied; 2 partial, complete. A. asymmetric, irreg. borders, 2 colors; B. large irregular mole with asymmetric, irregular bor ders, greater than 2 colors, size 2.5 x 0.75 cm; C. mole with attributes as above Gross Description: ? Received in formalin labelled Ch Rodolfo stevensy and #1-Rt mid back is a circular punch biopsy of mccormick -white skin measuring 0.6 cm in diameter and 0.3 cm in thickness. ??There is an eccentric 0. 4 x 0.2 cm irregular mccormick-brown macule. The specimen is bisected and entirely submitted as (A) . Received in formalin labelled Andrea Cheema and #2 L scapula punch of mole is an ovoid punch biopsy of mccormick-white, focally mccormick and brown, mottled skin measuring 0.5 x 0.4 cm in diameter and 0.2 cm in thickness. ??The specimen is bisected and entirely submitted as (B). Received in formalin labelled Andrea Cheema an d #3 L mid back is an ovoid punch biopsy of mccormick-white, focally mccormick and brown mottled skin measuring 0.5 x 0.4 cm in diameter and 0.3 cm in thickness. ??The spec imen is bisected and entirely submitted as (C). (Jesus Glynn)/mpl ?? End of Report Specimen Performing Organization Address City/State/ZIP Code Phon e Number [facility] [address] [place] [address] SERVICES [facility] [address] [place] [address] documented in this encounter Visit Diagnoses Not on filedocumented in this encounter Care Teams Tool Repair Technician Relationship Specialty Start Date End Date Unknown, Provider, PCP - General 05/18/12 05/19/12 documented as of this encounter
--- OUTSIDE RECORDS SUMMARY | 2022-01-23 01:21 | XMS_ITS | Encounter Summary ---
:1955 Author Organization [facility] Address [address] [place] [address] Care Team Providers Name Role Phone Karmen Kaye MD Primary Care Provider Encounter Details Date Type Department Care Team Description 02/08/2017 Hospital Encounter [facility] [place] Unknown, Provider, [facility] [address] [place] [address] [place] [address] (Work) [phone] Social History Tobacco Use Types Packs/Day Years Used Date Never Assessed Sex Assigned at Date Recorded Not on file documented as of this encounter Discharge Disposition Disposition Code Departure Means Destination Home or Self [facility]fp documented in this encounter Plan of Treatment Not on filedocumented as of this encounter Visit Diagnoses Not on filedocumented in this encounter Care Teams Diamond Wheel Molder Relationship Specialty Start Date End Date Karmen Kaye MD PCP - General 05/20/[address] [place] [id number] documented as of this encounter
--- OUTSIDE RECORDS SUMMARY | 2022-01-23 01:21 | XMS_ITS | Encounter Summary ---
:1955 Author Organization [facility] Address [address] [place] [address] Care Team Providers Name Role Phone Karmen Kaye MD Primary Care Provider Encounter Details Date Type Department Care Team Description 09/09/2020 Lab Requisition [facility] Gil Nguyễn for other Pathology & MD Neymar general examination Laboratory Medicine [address] [place], [place] [address] [facility] [address] [place], [place] [id number] Social History Tobacco Use Types Packs/Day Years Used Date Never Assessed Sex Assigned at Date Recorded Not on file documented as of this encounter Plan of Treatment Not on filedocumented as of this encounter Procedures Procedure Name Priority Date/Time Associated Diagnosis Comme nts SURGICAL PATHOLOGY Today 09/09/2020 11:00 Encounter for othe r Results for this EDT general examination procedur e are in the results section. documented in this encounter Results SURGICAL PATHOLOGY (09/09/2020 11:00 EDT) Final Diagnosis A. COLON, CECUM, POLYP, [facility]OPSY: [facility] B. COLON, ASCENDING, POLYP, BIOPSY: [facility] - Polypoid colonic mucosa with prominent bengin lamina propria lymph node. C. COLON, DESCENDING, POLYP, BIOPSY: - Tubular adenoma. Attestation There was significant [facility] Electr onically resident/fellow CENTER signed by Vicente gauthier, involvement in the LABORATORY Jasmin Rinaldi MD on diagnostic evaluation SERVICES 021 at 1122 of this case. By the signature below, the attending physician certifies that they have personally conducted a gross and/or microscopic examination of the described specimens and rendered or confirmed the above diagnosis. Clinical History Hx polyps [facility] Gross Description A. [facility] Received in formalin josette d with proper patient identification (initials C, G) and cecal polyp is a single fragment of mccormick tissue (0.2 x 0.2 x 0.2 cm). The specimen is submitted in A1. [facility] B. SERVICES Received in formalin josette d with proper patient identification (initials C, G) and ascending colon polyp is a single fragment of mccormick tissue (0.5 x 0.2 x 0.2 cm). The specimen is submitted in B1. C. Received in formalin josette d with proper patient identification (initials C, G) and descending colon polyp is a single fragment of mccormick tissue (0.3 x 0.2 x 0.2 cm). The specimen is submitted in C1. [place] MARQUEZ[facility] 09/09/2020 16:31 Resident/Fellow: Alton Wilcox MD [facility] Performing Lab [facility] Scanned Images [facility] Specimen Tissue - Descending colon structure (bod y structure) Tissue specimen (specimen) - Ascending c olon structure (body structure) Tissue specimen (specimen) - Descending colon structure (body structure) Performing Organization Address City/State/ZIP Code Phon e Number [facility] [address] [place] [address] SERVICES documented in this encounter Visit Diagnoses Diagnosis Encounter for other general examination documented in this encounter Care Teams Post Acute Care Nurse Relationship Specialty Start Date End Date Karmen Kaye MD PCP - General 05/20/[address] [place] [id number] documented as of this encounter
--- OUTSIDE RECORDS SUMMARY | 2022-01-23 01:21 | XMS_ITS | Encounter Summary ---
:1955 Author Organization [facility] Address [address] [place] [address] Care Team Providers Name Role Phone Karmen Kaye MD Primary Care Provider Encounter Details Date Type Department Care Team Description 02/08/2017 Results Only [facility]- Linda Blair, [address] [place] [address] [address] [place], [place] [id number] (Wo rk) Social History Tobacco Use Types Packs/Day Years Used Date Never Assessed Sex Assigned at Date Recorded Not on file documented as of this encounter Plan of Treatment Not on filedocumented as of this encounter Procedures Procedure Name Priority Date/Time Associated Diagnosis Comme [facility] SURGICAL PATHOLOGY Routine 02/08/2017 9:44 EDT Re sults for this procedure are i n the results section. documented in this encounter Results SURGICAL PATHOLOGY (02/08/2017 9:44 EDT) Pathology Report: SURGICAL PATHOLOGY REPORT [facility] Reports generated via electronic interface contain alisha ginal data; LABORATORY however they are lacking the format of the original re port. SERVICES Caution should be taken when reading/interpreting unfo rmatted reports. Name: ? ANDREA CHEEMA ? Accession #: ? [id number] ? : ? 1955 (Age: [age]) ??M ? Collect Date: ? 02/08/2017 ? Location: ? [facility] ? Receive Date: ? 02/10/20 17 ? Provider: LINDA SWIFT MD Copy to: RAINE RAMOS MD ? Final Pathologic Diagnosis: ----- A. ??CECAL COLON POLYP, BIOPSIES: - ??Fragments of tubulovillous adenoma. B. ??ASCENDING COLON POLYPS, X 2, BIOPSIES: - ??Fragments of tubular adenoma and fragments of hype rplastic polyp. C. ??RECTAL COLON POLYP, BIOPSIES: - ??Fragments of tubular adenoma(s). ___ Document reviewed and electronically signed by: DOYLE RENE MD Report ??Date: 02/11/2017 08:32 By the signature above, the attending physician certif ies that he/she has personally conducted a gross and/or microscopic examin ation of the described specimens and rendered or confirmed the above diagnosi s. Specimen(s) Received: A. ??Cecal polyp B. ??Ascending colon polyp x2 C. ??Rectal polyp Clinical History: Screening for colon cancer Gross Description: A. ?Received in formalin labelled with proper p atient identification (initials C, G) and cecal p olyp are two fragments of mccormick-pink tissue (each 0.2 x 0.2 x 0.2 cm). The specimens are submitted entirely in A1. B. ?Received in formalin labelled with proper p atient identification (initials C, G) and ascending colon lambert yp x2 are three fragments of mccormick-pink tissue ranging from 0.2-0.3 cm in greatest dimension. The specimens are submitted entirely in B1. C. ?Received in formalin labelled with proper p atient identification (initials C, G) and rectal polyp are two fragm ents of mccormick-pink tissue (each 0.3 x 0.2 x 0.2 cm). The specimens are submitted kimberlee aguilera in C1. [place] Aburto (ASCP) 02/09/2017 9:58 AM End of Report Specimen Performing Organization Address City/State/ZIP Code Phon e Number [facility] [address] [place] [address] SERVICES documented in this encounter Visit Diagnoses Not on filedocumented in this encounter Care Teams Automation Controls Specialist Relationship Specialty Start Date End Date Karmen Kaye MD PCP - General 05/20/[address] [place] [id number] documented as of this encounter
[2022-01-23 12:32] LABS: BUN 14 mg/dL (7-18); Calcium 9.2 mg/dL (8.5-10.1); Chloride 105 mmol/L (98-107); Estimated GFR 83.52 (mL/min/1.73m2); Glucose 104 mg/dL (74-106); Potassium 4.3 mmol/L (3.5-5.1); Sodium 142 mmol/L (136-145)
[2022-01-23 12:38] LABS: Calculated LDL 133 mg/dL (<100); Cholesterol 209 mg/dL (<200); HDL Cholesterol 57 mg/dL (40-60); Triglyceride 97 mg/dL (<150)
[2022-01-23 22:41] LABS: PSA, Screening 1.6 ng/mL (<=4.5)
== END 2022-01-23 01:17 | disposition home or self-care (01) ==
LOC: LOS 01:16
PROVIDERS: Family Medicine; PCP Nurse Practitioner; Visit Provider Nurse Practitioner
DX: E78.2 Mixed hyperlipidemia (principal); Z12.5 Encounter for screening for malignant neoplasm of prostate
CPT/HCPCS: 36415; 80048; 80061; 84153

== ENCOUNTER 2022-08-11 01:11 | Outpatient (CLI) | payer OTHER, SELFPAY ==
--- NOTE | 2022-08-11 12:57 | DI.RAD_ITS ---
Exam(s) XR KNEE LT 3V AP,LAT,KOBY EXAM: XR KNEE LT 3V AP,LAT,KOBY CLINICAL HISTORY: knee injury 5 wk ago,lt knee pain,m25.562. TECHNIQUE: 2D digital imaging was performed of the left knee. Four images were obtained. AP, later al and PA tunnel views were obtained. COMPARISON: No exams were available for comparison FINDINGS: BONES: On the AP view there is mild thickening of the cortex at the medial aspect of the proximal me tadiaphyseal junction of the tibia. This may represent a healing fracture. No other evidence of a f racture is seen. No bony destructive lesion is seen. JOINTS: The knee is normally aligned. No joint effusion is seen. Mild spurring of the posterior rodriguez la. This suggest mild degenerative changes. SOFT TISSUE: Normal. IMPRESSION: Question of mild periosteal reaction involving the medial cortex of the proximal metadiaphyseal junct ion of the tibia. This may represent a healing fracture. No other evidence of a fracture. DATA REPOSITORY: RADIATION DOSE DELIVERED:
== END 2022-08-11 01:31 ==
LOC: DI 01:11
PROVIDERS: PCP Nurse Practitioner Family; Visit Provider Nurse Practitioner Family
DX: M25.562 Pain in left knee (principal); M25.862 Other specified joint disorders, left knee
CPT/HCPCS: 73562

== ENCOUNTER 2022-12-07 10:03 | Emergency (ER) | payer OTHER, SELFPAY ==
[2022-12-07] VITALS (29 sets, daily range): BP systolic 113–162; BP diastolic 66–103; PULSE 56–79; RESP 13–22; TEMP 36.7; O2SAT 95–98
--- NOTE | 2022-12-07 10:00 | RT.EKG_ITS ---
APPROVED REPORT Exam: Resting ECG Reason for Exam: chest tightness Patient Location: E HR:56 bpm ECG Measurements Heart Rate 56 AXIS IL 186 P 9 QRSd 94 QRS -14 QT 425 T 18 QTc 410 Conclusion Sinus bradycardia...rate< 60
--- NOTE | 2022-12-07 10:15 | W.ED.GENAD ---
Discharge Plan Disposition Patient Disposition: Home Condition: Stable Discharge Details Clinical Impression: Anaphylactic reaction Primary Care Provider: Rubi Rubi ED Provider: Adin Dill Home Meds and New Rx's Prescriptions: New prednisone 20 mg tablet 40 mg PO DAILY Qty: 8 0RF Rx Instructions: start 12/08/22 epinephrine [EpiPen] 0.3 mg/0.3 mL auto-injector 0.3 mg IM ONCE PRN (Reason: anaphylaxis) Qty: 2 0RF Rx Instructions: as a single dose; may repeat once Continued celecoxib [Celebrex] 100 mg capsule 100 mg PO DAILY Qty: 90 3RF omega-3 fatty acids-fish oil 1 EACH capsule 1 ea PO BID Patient Comments: not since last wed Vitamin D3 (calcium cit-phos) 1 EACH tablet 1 ea PO DAILY Patient Comments: Pt states he has not taken this since last wed ibuprofen 200 MG tablet 2 tab PO BID prn Patient Comments: not since last wed No Action cinnamon bark 500 MG capsule 500 mg PO DAILY Patient Comments: not taken since last wed Discharge Instructions Instructions: Food Allergy (ED), Anaphylaxis (ED) Additional Instructions: Please avoid fruits that you consumed today as you may have developed an allergic reaction to these. Please follow-up with an medical support assistant at [facility] or [facility]. Call for an appointment. Take Benadryl 25 mg every 8 hours for the next 2 days. Take prednisone as prescribed. Please contact your primary care physician to arrange follow-up. Return to the ER immediately for any worsening or new concerning symptoms. 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 Concern for anaphylactic reaction. Plan to treat with epinephrine IM, Solu-Medrol IV and Benadryl 25 mg IV and Pepcid 20 mg IV. Patient took Benadryl 25 mg p.o. prior to arrival. --Patient refused EpiPen. He provided consent to epinephrine IV. Patient received one third of epinephrine IV injection and started develop pale skin and feeling anxious. Infusion was discontinued. 1320 --patient reassessed and symptoms completely resolved. Plan to discharge with outpatient follow-up. Disposition decision was made weighing the risks and benefits of hospitalization versus outpatient treatment, the risk for further decompensation, and the patient's wishes. The patient was stable and requested discharge. Prior to discharge, my usual and customary return precautions were reviewed with the patient - this included follow-up instructions and reason to return to the emergency department if condition worsens, does not improve as expected, or other new concerns arise. ECG Data Attestation: I personally reviewed and interpreted this ECG (s) as follows: (Please see report, sinus bradycardia 56 bpm) HPI General Mode of arrival: ambulatory. Date/Time Provider Initiated Documentation: 12/07/22 10:05. Limitations to Documentation: no limitations. Information obtained by: patient. 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 Patient notes about 30 minutes prior to arrival he developed full body rash, itching all over, feeling flushed tingling and now swollen tongue. Patient also notes some epigastric/lower right chest discomfort that feels like gas. Related Data Home Medications Medication Instructions Recorded Confirmed cinnamon bark 500 mg capsule 500 mg PO DAILY 05/24/13 12/07/22 omega-3 fatty acids-fish oil 300 1 ea PO BID 05/24/13 12/07/22 mg-1,000 mg capsule calcium b no.1-vit Q7-W4-[id number]-B12 1 ea PO DAILY 05/25/13 12/07/22 120 mg-1,000 unit-10 mg tablet (Vitamin D3 (with calcium cit-phos)) ibuprofen 200 mg tablet 2 tab PO BID prn 06/18/15 12/07/22 celecoxib 100 mg capsule (Celebrex) 100 mg PO DAILY pain #90 caps 11/10/22 12/07/22 epinephrine 0.3 mg/0.3 mL 0.3 mg (0.3 mL) IM ONCE PRN 12/07/22 injection, auto-injector (EpiPen) anaphylaxis #2 ea prednisone 20 mg tablet 40 mg PO DAILY #8 tabs 12/07/22 Previous Rx's Medication Instructions Recorded celecoxib 100 mg capsule (Celebrex) 100 mg PO DAILY pain #90 caps 11/10/22 epinephrine 0.3 mg/0.3 mL 0.3 mg (0.3 mL) IM ONCE PRN 12/07/22 injection, auto-injector (EpiPen) anaphylaxis #2 ea prednisone 20 mg tablet 40 mg PO DAILY #8 tabs 12/07/22 Allergies Allergy/AdvReac Type Severity Reaction Status Date / Time cashew nut AdvReac Intermediate Skin Rash Unverified 12/07/22 10:10 kiwi AdvReac Severe Anaphylaxis Uncoded 12/07/22 10:10 General Stated Complaint: Allergic GIGI: 3 Review of Systems All systems reviewed & are unremarkable except as noted in HPI and below Constitutional Constitutional: Denies fever(s) ENT Ears, Nose, Mouth, and Throat: Reports as per HPI Cardiovascular Cardiovascular: Denies dyspnea Respiratory Respiratory: Denies dyspnea Comments: Mild wheeze PFSH All Active Problems (Updated 12/07/22 @ 13:43 by Adin Dill MD) Anaphylactic reaction (Acute) Changes in vision (Acute) scleral buckle placed,retinal issues [place] [facility] [place] yearly will be transferring routine eye care to [place] Alcohol use disorder (Acute) above recommended limits of 2 drinks a day daily intake is 2 beers and a shot Adenomatous polyp of colon (Acute 02/08/17) last colo 08/2020- cecal - tubulovillous, ascending - tubular adenoma, rectal - tubular Hyperlipidemia (Chronic) Medical History COVID-05 jul 2021 Former smoker Hyperlipidemia Left knee pain Trigeminal neuralgia of right side of face Tubular adenoma Surgical History ANKLE SURGERY LEFT Colonoscopy - MAC (02/08/17) (2006, NORMAL) H/O right cataract extraction (~05/2020) [facility] History of colonoscopy (~08/2020) Family History Mother , 58 Brain cancer Father , 61 No problems noted. Sister No problems noted. Maternal Grandfather , 86 No problems noted. Paternal Grandfather No problems noted. Maternal Grandmother No problems noted. Paternal Grandmother No problems noted. Sister No problems noted. Social History Smoking/Tobacco Use Status: Former Tobacco Use tobacco type: cigarettes Quit Date: 11/15/19 Smokeless tobacco user: snus and dissolvable tobacco Quit status: not considering quitting Second Hand Exposure: Yes Smoking risk assessment performed?: Yes Alcohol Intake: current Alcohol Intake frequency: a few times a week Alcohol type: beer and hard liquor Drug use: Never Substance use type: does not use Caregiver/Support person: No Household members: spouse Housing: house Communication Needs: None Do you need help understanding health information?: Rarely Pets and animals: Yes (Goats, Geese, Johnston) Pets and animals: cat(s), dog(s) and farm animals Sexually active: Yes Do you think of yourself as: straight/heterosexual Current gender identity: male What is your relationship status?: How often do you talk on the phone with friends or family?: three or more times per week How often do you get together with friends or relatives?: three or more times per week How often do you attend anglican or yarsani services?: 1-3 times per year Do you belong to any clubs or organized social groups?: yes Panel score (0-1 are the most socially isolated patients): 3 What type of physical activity do you participate in: walking, aerobic, bicycling and other Details: hockey, hiking Duration: 45-60 minutes/day Frequency: daily Aura/Scientology: Judaism Special aura needs: No Seatbelt use: always Helmet use: Yes Helmet use: always Drive intox or ride w/intox automobile drivers: No Do you feel safe at home: Yes Do you feel safe in your relationship?: Yes Exam Const General: cooperative HENME Head: normocephalic and atraumatic Throat: posterior oropharynx normal Other: Mild swelling of the tongue Eyes Conjunctivae: normal conjunctivae Sclera: normal sclerae Neck Neck: trachea midline and supple Resp Auscultation: clear to auscultation bilaterally, no rales, no rhonchi and no wheezes Cardio Rate: regular rate and not tachycardic Rhythm: regular rhythm GI Palpation: soft, not firm, no guarding, no masses, not rigid and nontender Skin Rashes: rashes noted (Urticarial rash upper extremities noted) Neuro General: patient alert, patient awake and tone normal Extrem General: no edema Psych Appearance: grossly normal Mental Status: mental status grossly normal Course Vital Signs Vital signs: Vital Signs Temperature 36.7 C 12/07/22 10:06 Pulse 67 12/07/22 10:06 Respiratory Rate 20 12/07/22 10:06 Blood Pressure 162/103 H 12/07/22 10:06 Pulse Oximetry 96 12/07/22 10:06 Temperature 36.7 C 12/07/22 10:06 Temperature Source Skin 12/07/22 10:06 Pulse 67 12/07/22 10:06 Respiratory Rate 20 12/07/22 10:06 Blood Pressure 162/103 H 12/07/22 10:06 Blood Pressure Position Sitting 12/07/22 10:06 Pulse Oximetry 96 12/07/22 10:06 Oxygen Delivery Method Room Air 12/07/22 10:06 Oxygen Flow Rate 0 12/07/22 10:06 Critical Care Time Critical Care Time Critical Care Time: Yes Total Critical Care Time: 40 Attestation: I spent greater than 40 minutes addressing this patient's immediate life threats. Please see MDM section of note. This time was spent engaged in work directly related to the patient's care, exclusive of separate procedures, and failure to initiate these interventions would have likely resulted in clinically significant or life threatening deterioration in the patient's condition.
[2022-12-07] MEDS: diphenhydrAMINE 50 MG/ML VIAL 25 MG IVP (10:28)
[2022-12-07] MEDS: Famotidine 20 MG/2 ML VIAL IVP (10:29)
[2022-12-07] MEDS: methylPREDNISolone SUCC 125 MG VIAL IVP (10:30)
[2022-12-07] MEDS: EPINEPHrine 1 MG/10 ML SYR IVP (10:53)
== END 2022-12-07 13:48 | disposition home or self-care (01) ==
PROVIDERS: Emergency Provider Student in an Organized Health Care Education/Training Program; PCP Nurse Practitioner Family
DX: T78.2XXA Anaphylactic shock, unspecified, initial encounter (principal)
CPT/HCPCS: 93005; 96374; 96375; 99284; 93010; J1200; J2930

== ENCOUNTER 2023-03-15 03:26 | Outpatient (CLI) | payer OTHER, SELFPAY ==
[2023-03-15 12:30] LABS: HCT 45.2 % (40.0-50.0); HGB 15.1 g/dL (13.5-17.5); MCH 33.2 pg (27.0-33.0); MCHC 33.4 % (32.0-36.0); MCV 99 fL (80-95); MPV 10.8 fL (8.0-11.0); Platelet Count 235 10^3/uL (130-400); RBC 4.55 10^6/uL (4.36-5.78); RDW 12.2 % (11.8-14.1)
[2023-03-15 12:48] LABS: Anion Gap 9.4 mmol/L (3-11); BUN 17 mg/dL (7-18); CO2 28.6 mmol/L (21.0-32.0); CREATININE 0.8 mg/dL (0.70-1.30); Calcium 9.6 mg/dL (8.5-10.1); Calculated LDL 138 mg/dL (<100); Chloride 108 mmol/L (98-107); Cholesterol 212 mg/dL (<200); Glucose 90 mg/dL (74-106); HDL Cholesterol 50 mg/dL (40-60); Potassium 4.2 mmol/L (3.5-5.1); Sodium 146 mmol/L (136-145); Triglyceride 122 mg/dL (<150)
== END 2023-03-15 03:27 | disposition home or self-care (01) ==
PROVIDERS: PCP Nurse Practitioner Family; Visit Provider Nurse Practitioner Family
DX: E78.5 Hyperlipidemia, unspecified (principal); Z00.00 Encounter for general adult medical examination without abnormal findings
CPT/HCPCS: 36415; 80048; 80061; 84153; 85027

== ENCOUNTER 2024-01-13 15:19 | Outpatient (CLI) | payer OTHER, SELFPAY ==
--- NOTE | 2024-01-13 14:41 | DI.RAD_ITS ---
Exam(s) XR ELBOW RT COMPLETE EXAM: XR ELBOW RT COMPLETE CLINICAL HISTORY: RIGHT ELBOW PAIN. TECHNIQUE: 2D digital imaging was performed. Three views. COMPARISON: CR XR elbow RT complete from 01/26/2019 FINDINGS: BONES: No acute fracture is present. No bony destructive lesion is seen. Prominent enthesophyte at t he posterior olecranon. JOINTS: The elbow is normally aligned. No joint effusion is seen. The joint spaces are maintained. SOFT TISSUE: Normal. IMPRESSION: Prominent olecranon enthesophyte. DATA REPOSITORY: RADIATION DOSE DELIVERED:
== END 2024-01-13 15:20 | disposition home or self-care (01) ==
LOC: DIORS 15:20
PROVIDERS: PCP Nurse Practitioner Family; Visit Provider Student in an Organized Health Care Education/Training Program
DX: M25.721 Osteophyte, right elbow
CPT/HCPCS: 73080

== ENCOUNTER 2024-03-16 09:09 | Outpatient (CLI) | payer OTHER, SELFPAY ==
--- NOTE | 2024-03-16 08:15 | DI.RAD_ITS ---
Exam(s) XR SHOULDER RT COMPLETE 2+V EXAM: XR SHOULDER RT COMPLETE 2+V CLINICAL HISTORY: fall, right shoulder pain M25.511. TECHNIQUE: 2D digital imaging was performed. Five views. COMPARISON: No exams were available for comparison FINDINGS: BONES: No acute fracture is present. No bony destructive lesion is seen. Degenerative changes at the undersurface of acromion. JOINTS: No dislocation present.Minimal spurring at the glenohumeral joint. SOFT TISSUE: Normal. IMPRESSION: Mild degenerative changes. No acute abnormality. DATA REPOSITORY: RADIATION DOSE DELIVERED:
== END 2024-03-16 09:29 ==
LOC: DI 09:10
PROVIDERS: PCP Nurse Practitioner Family; Visit Provider Nurse Practitioner Family
DX: M25.511 Pain in right shoulder (principal); W19.XXXA Unspecified fall, initial encounter
CPT/HCPCS: 73030

== ENCOUNTER 2024-04-11 06:19 | Emergency (ER) | payer OTHER, SELFPAY ==
[2024-04-11 06:22] VITALS: BP 159/101; PULSE 79; RESP 18; TEMP 36; O2SAT 98
--- NOTE | 2024-04-11 06:30 | DI.CT_ITS ---
Exam(s) CT NECK W EXAM: CT NECK W CLINICAL HISTORY: R dental infection, notable swelling in R cheek. TECHNIQUE: Imaging Protocol: Axial computed tomography images with coronal and sagittal reformatted images were created and reviewed. CONTRAST MATERIAL: Intravenous: Omnipaque 350 Contrast volume:100mL COMPARISON: MR MRI - BRAIN WO CONTRAST from 10/05/2008 FINDINGS: Examination is limited by artifacts from the patient's dental hardware. Orbits and orbital soft tissues: Within normal limits. Visualized paranasal sinuses: Within normal limits. Nasopharynx: Within normal limits. Oropharynx: Within normal limits. Hypopharynx: Please see the section below under soft tissues. Larynx: Please see the section below under soft tissues. Retropharyngeal space: Within normal limits. Parotids/submandibular: Within normal limits. Thyroid gland: Within normal limits. Lymphadenopathy: Mildly enlarged reactive lymph nodes seen in the submandibular region bilaterally, right greater than left. Trachea: Within normal limits. Lung apices: Within normal limits. Bones: Within normal limits for the patient's age. Carotids/Jugular: Within normal limits. Soft tissues: There is edema and soft tissue swelling of the right cheek, right submandibular regio n and overlying the right mandible. There is a 1.8 x 3 x 4.6 cm peripherally enhancing fluid collect ion medial to the right mandible at the level of the molars consistent with an abscess. The abscess extends superiorly to involve the right medial pterygoid muscle which is enlarged. There is leftward deviation of the tongue musculature secondary to the abscess. No significant airway narrowing is se en. IMPRESSION: 1.8 x 3 x 4.6 cm abscess medial to the right mandible with extension superiorly into the right medial pterygoid muscle. There is a mass effect on the tongue musculature but no significant airway narrow ing is seen. Edema/soft tissue swelling is seen in the right cheek, right submandibular region and o verlying the right mandible. Reactive lymph nodes are seen on the right. RADIATION DOSE DELIVERED: 364.29mGy.cm Total DLP 364.29mGy.cm Total DLP DATA REPOSITORY: All CT scans at this facility are submitted to the National Radiology Data Registry (NRDR) Dose Index Registry (DIR) with the [employer] (A[employer]). RADIATION OPTIMIZATION: All CT scans at this facility use at least one of these dose optimization te chniques: automated exposure control; mA and/or kV adjustment per patient size (includes targeted exa ms where dose is matched to clinical indication); or iterative reconstruction.
--- NOTE | 2024-04-11 07:06 | W.ED.GENAD ---
Discharge Plan Discharge Details Chief Complaint: DentalOral Clinical Impression: Swelling of buccal mucosa Primary Care Provider: Rubi Rubi ED Provider: Garrett Espinoza Home Meds and New Rx's Prescriptions: No Action celecoxib [Celebrex] 100 mg capsule 100 mg PO DAILY PRN (Reason: pain) omega-3 fatty acids-fish oil 1 EACH capsule 1 ea PO BID Patient Comments: not since last wed Vitamin D3 (calcium cit-phos) 1 EACH tablet 1 ea PO DAILY Patient Comments: Pt states he has not taken this since last wed ibuprofen 200 MG tablet 2 tab PO BID prn Patient Comments: not since last wed epinephrine [EpiPen] 0.3 mg/0.3 mL auto-injector 0.3 mg IM ONCE PRN (Reason: anaphylaxis) Qty: 2 0RF Rx Instructions: as a single dose; may repeat once amoxicillin 500 mg capsule 500 mg PO TID Patient Comments: TAKE ONE CAPSULE BY MOUTH THREE TIMES A DAY UNTIL GONE HPI General Date/Time Provider Initiated Documentation: 04/11/24 06:21. HPI Narrative: This is a pleasant 69-year-old male with a past medical history of high cholesterol, who presents today for evaluation of right sided facial swelling. Patient recently had dental procedure elicitation performed on his right lower posterior molar. He noted a mild bit of swelling a few days ago during initial procedure elicitation and subsequently. The swelling was noted somewhere in his right cheek and right lower jaw area. Yesterday the patient went back in for a root canal revision and had no significant complications with the surgery. Patient states that the doctor stated that he had a bunch of gas and fluid that he was able to extract out during the procedure. However last night, and throughout the evening the patient swelling in his right cheek notably worsened. He continued to worsen throughout the night till he came in to the ER for further assessment. He did take 200 mg of Motrin and also Tylenol prior to arrival. He denies any difficulty swallowing or drinking. He denies any fever. He denies any headache. No change in his voice. No other complaints at this time. Related Data Home Medications ?Medication ?Instructions ?Recorded ?Confirmed omega-3 fatty acids-fish oil 300 1 ea PO BID 05/24/13 04/11/24 mg-1,000 mg capsule calcium b no.1-vit Z2-[id number]-YH-B12 1 ea PO DAILY 05/25/13 04/11/24 120 mg-1,000 unit-10 mg tablet (Vitamin D3 (with calcium cit-phos)) ibuprofen 200 mg tablet 2 tab PO BID prn 06/18/15 04/11/24 epinephrine 0.3 mg/0.3 mL 0.3 mg (0.3 mL) IM ONCE PRN 12/07/22 04/11/24 injection, auto-injector (EpiPen) anaphylaxis #2 ea celecoxib 100 mg capsule (Celebrex) 100 mg PO DAILY PRN pain 11/15/23 04/11/24 amoxicillin 500 mg capsule 500 mg PO TID 04/11/24 04/11/24 Previous Rx's ?Medication ?Instructions ?Recorded epinephrine 0.3 mg/0.3 mL 0.3 mg (0.3 mL) IM ONCE PRN 12/07/22 injection, auto-injector (EpiPen) anaphylaxis #2 ea Allergies Allergy/AdvReac Type Severity Reaction Status Date / Time cashew nut AdvReac Intermediate Skin Rash Unverified 04/11/24 06:26 General Stated Complaint: DentalOral GIGI: 3 Review of Systems All systems reviewed & are unremarkable except as noted in HPI and below Exam Narrative Exam Narrative: 1.Const: Well-nourished, Well-developed, appearing stated age 2.Eyes: PERRL, no conjunctival injection, and symmetrical lids. 3.ENT: Atraumatic external nose and ears. Moist MM. Neck: Symmetric, trachea midline, No thyromegaly. Patient demonstrates notable swelling of his right cheek, on palpation it is edematous and minimally tender. The dentition itself appears intact. No focal periapical abscess that I can palpate. The swelling seems to extend posteriorly, but I cannot find a direct connection between that swelling in the jawline. No active drainage. Internally on the inside of the buccal mucosa the mucosa appears to be edematous almost that is if it had been chewed on. No active bleeding though. 4.CVS: +S1/S2, Peripheral pulses 2+ and equal in all extremities. Brisk capillary refill in all extremities. 5.RESP: Unlabored respiratory effort. Clear to auscultation bilaterally. No wheezes rales or rhonchi 6.GI: Soft, Nontender/Nondistended, No hepatosplenomegaly. No guarding or rebound. 7.MSK: Normocephalic/Atraumatic, Extremities w/o deformity or ttp No cyanosis or clubbing, Normal movement of all extremities 8.Skin: Warm, Dry. No rashes or lesions. 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 Sensation grossly intact, no focal neurologic deficits. 10.Psych: (AAO) x3. Appropriate mood and affect Course Vital Signs Vital signs: Vital Signs Temperature 36.0 C L 04/11/24 06:22 Pulse 79 04/11/24 06:22 Respiratory Rate 18 04/11/24 06:22 Blood Pressure 159/101 H 04/11/24 06:22 Pulse Oximetry 98 04/11/24 06:22 Temperature 36.0 C L 04/11/24 06:22 Pulse 79 04/11/24 06:22 Respiratory Rate 18 04/11/24 06:22 Respiratory Effort Normal 04/11/24 06:25 Blood Pressure 159/101 H 04/11/24 06:22 Blood Pressure Position Sitting 04/11/24 06:22 Pulse Oximetry 98 04/11/24 06:22 Pain Level 3 04/11/24 06:28 Medical Decision Making This is a pleasant 69-year-old male with a past medical history of high cholesterol, who presents today for evaluation of right sided facial swelling. Patient recently had dental procedure elicitation performed on his right lower posterior molar. He noted a mild bit of swelling a few days ago during initial procedure elicitation and subsequently. The swelling was noted somewhere in his right cheek and right lower jaw area. Yesterday the patient went back in for a root canal revision and had no significant complications with the surgery. Patient states that the doctor stated that he had a bunch of gas and fluid that he was able to extract out during the procedure. However last night, and throughout the evening the patient swelling in his right cheek notably worsened. He continued to worsen throughout the night till he came in to the ER for further assessment. He did take 200 mg of Motrin and also Tylenol prior to arrival. He denies any difficulty swallowing or drinking. He denies any fever. He denies any headache. No change in his voice. No other complaints at this time. Patient demonstrates notable swelling of his right cheek, on palpation it is edematous and minimally tender. The dentition itself appears intact. No focal periapical abscess that I can palpate. The swelling seems to extend posteriorly, but I cannot find a direct connection between that swelling in the jawline. No active drainage. Internally on the inside of the buccal mucosa the mucosa appears to be edematous almost that is if it had been chewed on. No active bleeding though. Bedside ultrasound was performed and I was not able to visualize a focal fluid collection. With the recent history of fluid pus and gasping noted by the dentist, the current swelling, and the atypical nature of the visual and palpable findings of the swelling, I do suspect further imaging is indicated to rule out large abscess more internally or other form of infectious component. We will give a dose of Unasyn, check basic labs, monitor closely and reassess. Patient will be signed out to my colleague for follow-up on imaging. Quality:[facility] Health Related Social Needs: No Data to Display [facility] All Active Problems (Updated 04/11/24 @ 07:46 by Garrett Espinoza DO) Swelling of buccal mucosa (Acute) Enthesopathy of right elbow (Acute) Changes in vision (Acute) scleral buckle placed,[place] [facility] [place] will be transferring routine eye care [place] Alcohol use disorder (Acute) above recommended limits of 2 drinks a day daily intake is 2 beers and a shot Adenomatous polyp of colon (Acute 02/08/17) last colo 08/2020- cecal - tubulovillous, ascending - tubular adenoma, rectal - tubular Hyperlipidemia (Chronic) Medical History Left knee pain COVID-05 jul 2021 Tubular adenoma Former smoker Trigeminal neuralgia of right side of face Surgical History History of colonoscopy (~08/2020) [place] right [place] [facility] [place] - [place] (02/08/17) (2006, NORMAL) ANKLE SURGERY LEFT Family History Mother , 58 Brain cancer Father , 61 No problems noted. Sister No problems noted. Maternal Grandfather , 86 No problems noted. Paternal Grandfather No problems noted. Maternal Grandmother No problems noted. Paternal Grandmother No problems noted. Sister No problems noted. Social History Smoking/Tobacco Use Status: Former Tobacco Use tobacco type: cigarettes Quit Date: 11/15/19 Smokeless tobacco user: snus and dissolvable tobacco Quit status: not considering quitting Second Hand Exposure: Yes Smoking risk assessment performed?: Yes Alcohol Intake: current Alcohol Intake frequency: a few times a week Alcohol type: beer and hard liquor Drug use: Never Substance use type: does not use Caregiver/Support person: No Household members: spouse Housing: house Communication Needs: None Do you need help understanding health information?: Rarely Pets and animals: Yes (Goats, Geese, [place]) Pets and animals: cat(s), dog(s) and farm animals Sexually active: Yes Do you think of yourself as: straight/heterosexual Current gender identity: male What is your relationship status?: How often do you talk on the phone with friends or family?: three or more times per week How often do you get together with friends or relatives?: three or more times per week How often do you attend gnosticist or confucianism services?: 1-3 times per year Do you belong to any clubs or organized social groups?: yes Panel score (0-1 are the most socially isolated patients): 3 What type of physical activity do you participate in: walking, aerobic, bicycling and other Details: hockey, hiking Duration: 45-60 minutes/day Frequency: daily Uara/Spiritism: Adventism Special aura needs: No Seatbelt use: always Helmet use: Yes Helmet use: always 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
[2024-04-11 07:09] LABS: Abs Immature Grans 0.08 10^3/uL (0.0-0.06); Absolute Basophil Count 0.04 10^3/uL (0.0-0.2); Absolute Eosinophil Count 0.12 10^3/uL (0.0-0.7); Absolute Lymphocyte Count 1.54 10^3/uL (1.2-3.4); Absolute Monocyte Count 1.32 10^3/uL (0.1-0.8); Absolute Neutrophil Count 9.09 10^3/uL (1.2-6.7); Basophils % 0.3 %; HCT 42.7 % (40.0-50.0); HGB 14.2 g/dL (13.5-17.5); Immature Grans % 0.7 %; Lymphocytes % 12.6 %; MCH 33.3 pg (27.0-33.0); MCHC 33.3 % (32.0-36.0); MCV 100 fL (80-95); MPV 10.1 fL (8.0-11.0); Monocytes % 10.8 %; Neutrophils % 74.6 %; Platelet Count 203 10^3/uL (130-400); RBC 4.27 10^6/uL (4.36-5.78); RDW 12.3 % (11.8-14.1); RDW-SD 45.8 fL; WBC 12.19 10^3/uL (4.4-10.8)
[2024-04-11] MEDS: Omnipaque 350 MG/ML 100 ML BTL IJ (07:12)
[2024-04-11] MEDS: Normal Saline - Diluent 50 ML VIAL IJ (07:13)
[2024-04-11 07:25] LABS: ALT 35 U/L (16-63); AST 68 U/L (15-37); Albumin 3.2 g/dL (3.4-5.0); Alkaline Phosphatase 97 U/L (46-116); Anion Gap 9.8 mmol/L (3-11); BUN 15 mg/dL (7-18); Bilirubin, Total 0.71 mg/dL (0.2-1.0); CO2 28.2 mmol/L (21.0-32.0); CREATININE 0.8 mg/dL (0.70-1.30); Calcium 8.9 mg/dL (8.5-10.1); Chloride 107 mmol/L (98-107); Glucose 105 mg/dL (74-106); Potassium 4.2 mmol/L (3.5-5.1); Sodium 145 mmol/L (136-145); Total Protein 7.6 g/dL (6.4-8.2)
[2024-04-11 07:40] LABS: Procalcitonin 0.35 ng/mL
[2024-04-11] MEDS: AMPICILLIN/SULBACTAM 3 GM in Normal Saline 100 ML IVPB (07:41)
--- NOTE | 2024-04-11 07:51 | W.EDPROG ---
Date of service: 04/11/24 Time of Service: 07:52 Medical Decision Making Care assumed from outgoing provider. Patient is a 69-year-old gentleman currently being followed by his dentist for a root canal procedure that has been complicated by infection. He is currently on antibiotics. He presented to the emergency department with worsened cheek swelling which is thought to be likely from some trauma and inflammatory edema but unlikely to be infectious. At the time of signout, final disposition pending CT scan read. CT read concerning for There is an abscess in the region of the right retromolar trigone. The abscess extends superiorly in the right medial pterygoid muscle. There associated soft tissue edema/cellulitis is seen superficial to the right mandible. Patient has close f/u with dentist today who has already been managing this known complication. Currently there are no signs concerning for airway involvement. discussed return precautions with the patient. will expand coverage from amox > clind. patient provided with vrad report and CD of images to present to dentist to assist with follow up care. Quality:[facility] Health Related Social Needs: No Data to Display Sign Out Sign Out Data: Sign Out Comment: Recent dental procedure elicitation. Swelling in the right cheek. Follow-up on CT imaging Last updated by Garrett Espinoza DO at 04/11/24 07:47 Discharge Plan Disposition Patient Disposition: Home Discharge Details Clinical Impression: Swelling of buccal mucosa, Abscess, dental Primary Care Provider: Rubi Rubi ED Provider: Tyesha Casillas Home Meds and New Rx's Prescriptions: New clindamycin HCl 150 mg capsule 450 mg PO TID 7 Days Qty: 63 0RF Discontinued amoxicillin 500 mg capsule 500 mg PO TID Patient Comments: TAKE ONE CAPSULE BY MOUTH THREE TIMES A DAY UNTIL GONE No Action celecoxib [Celebrex] 100 mg capsule 100 mg PO DAILY PRN (Reason: pain) omega-3 fatty acids-fish oil 1 EACH capsule 1 ea PO BID Patient Comments: not since last wed Vitamin D3 (calcium cit-phos) 1 EACH tablet 1 ea PO DAILY Patient Comments: Pt states he has not taken this since last wed ibuprofen 200 MG tablet 2 tab PO BID prn Patient Comments: not since last wed epinephrine [EpiPen] 0.3 mg/0.3 mL auto-injector 0.3 mg IM ONCE PRN (Reason: anaphylaxis) Qty: 2 0RF Rx Instructions: as a single dose; may repeat once Discharge Instructions Additional Instructions: you have continued abscess (infection) in the right molar area please see your dentist TODAY for continued management return to the ED if you develop fever, painful or difficulty swallowing, change in voice or difficulty breathing stop amoxicillin and start clindamycin
--- NOTE | 2024-04-11 08:31 | DI.VRAD_ITS ---
PROCEDURE INFORMATION: Exam: CT Neck With Contrast Exam date and time: 04/11/2024 6:57 AM Age: 69 years old Clinical indication: Patient HX: R dental pain, notable swelling in R cheek TECHNIQUE: Imaging protocol: Computed tomography of the neck with contrast. COMPARISON: No prior relevant exams for comparison. FINDINGS: Soft tissue swelling compatible with edema or cellulitis is present superficial to the right karrie-mandible. Deep to the right karrie-mandible is a rim enhancing fluid collection near the right retromolar trigone. This fluid collection, compatible with abscess, measures approximately 2 x 1.6 x 4.5 cm (series 4, image 40; series 6, image 36). Please note that assessment of the oral cavity is limited by severe artifact from dental hardware. The abscess extends superiorly into the right medial pterygoid muscle. At this time, no significant extension is seen into the floor of mouth. No acute abnormality of either parotid gland or of either submandibular gland is identified. No significant abnormality of the thyroid gland. A few borderline prominent submandibular lymph nodes are present, likely reactive. Chronic multilevel cervical degenerative disc disease and facet arthropathy are associated with variable degrees of chronic cervical canal and foraminal stenoses. Bilateral carotid bifurcation atherosclerosis without significant stenosis. Bilateral internal jugular veins are patent. IMPRESSION: 1. There is an abscess in the region of the right retromolar trigone. The abscess extends superiorly in the right medial pterygoid muscle. There associated soft tissue edema/cellulitis is seen superficial to the right mandible. 2. Chronic cervical spondylosis. Dictated and Authenticated by: David Quiles MD. Ordering:JYOTI Tucker MD
[2024-04-11 08:46] VITALS: BP 175/95; PULSE 72; TEMP 36.3; O2SAT 97
[2024-04-11 08:56] VITALS: BP 175/95; PULSE 80; RESP 16; O2SAT 98
== END 2024-04-11 08:57 | disposition home or self-care (01) ==
PROVIDERS: Student in an Organized Health Care Education/Training Program; Emergency Provider Emergency Medicine; PCP Nurse Practitioner Family
DX: K04.7 Periapical abscess without sinus (principal)
CPT/HCPCS: 123; 70491; 80053; 84145; 99285; 00123; 85025; 99284; J0295; J3490

== ENCOUNTER 2025-03-28 01:52 | Outpatient (CLI) | payer OTHER, SELFPAY ==
[2025-03-28 08:28] LABS: ALT 13 U/L (10-49); AST 38 U/L (<34); Albumin 4.3 g/dL (3.4-5.0); Alkaline Phosphatase 73 U/L (46-116); Anion Gap 10.2 mmol/L (3-11); BUN 14 mg/dL (9-23); Bilirubin, Total 0.90 mg/dL (0.2-1.2); CO2 26.8 mmol/L (20.0-31.0); Calcium 8.8 mg/dL (8.3-10.6); Chloride 109 mmol/L (98-107); Glucose 90 mg/dL (74-106); Potassium 4.2 mmol/L (3.5-5.1); Sodium 146 mmol/L (136-145); Total Protein 7.1 g/dL (5.7-8.2)
[2025-03-28 09:45] LABS: Hemoglobin A1C 5.3 % (<5.7)
[2025-03-28 09:55] LABS: Cholesterol 198 mg/dL (<200); HDL Cholesterol 57 mg/dL (>40)
[2025-03-28 18:04] LABS: PSA, Screening 1.1 ng/mL (<=4.5)
== END 2025-03-28 01:53 | disposition home or self-care (01) ==
PROVIDERS: PCP Nurse Practitioner Family; Visit Provider Nurse Practitioner Family
DX: Z00.00 Encounter for general adult medical examination without abnormal findings (principal); R73.01 Impaired fasting glucose; E78.2 Mixed hyperlipidemia; Z12.5 Encounter for screening for malignant neoplasm of prostate
CPT/HCPCS: 36415; 80053; 80061; 84153; 83036